=== PATIENT | female | born 1995 | race Caucasian/White ===

== ENCOUNTER 2025-03-24 09:41 | Emergency (ER) | payer BC, MEDICAID, SELFPAY ==
[2025-03-24 10:02] VITALS: BP 132/78; PULSE 81; RESP 17; TEMP 36.9; O2SAT 98; BMI 45.7
[2025-03-24 10:14] LABS: Hematocrit 42.1 % (36-47); Hemoglobin 13.50 g/dL (11.27-16.99); Mean Corpuscular HGB Conc 32.1 g/dL (30-55); Mean Corpuscular Hemoglobin 27.6 pg (27-33); Mean Corpuscular Volume 86.1 fl (85-98); Nucleated Red Blood Cells % 0 %; Platelet Count 428 10^3/cmm (157-399); Red Blood Count 4.89 10^6/uL (3.85-5.65); White Blood Count 7.27 10^3/uL (3.29-11.43)
--- NOTE | 2025-03-24 10:29 | W.ED.ANXIETY ---
HPI - Anxiety General: Chief Complaint: Anxiety Stated Complaint: mhe Time Seen by Provider: 03/24/25 10:11 History of Present Illness: 29-year-old female who presents to the emergency room regarding her mental health. She is not having any homicidal or suicidal ideation. She was recently hospitalized in [place] for auditory hallucinations. She has been having them for the last 3 years she states are actually better now she was discharged home on lithium and Zyprexa but she has not been taking either because she does not like the way they make her feel. She is awake alert oriented she is not having any behavioral issues. She does have some mild anxiety. She does have paperwork from her most recent hospital discharge including a prescription which has not been filled. She she states she was told by her mother to tell staff here that she had unspecified psychosis. Associated symptoms: Deny chest pain, chills or fever(s) Related Data Home Medications ?Medication ?Instructions ?Recorded ?Confirmed No Known Home Medications 03/24/25 03/24/25 Allergies Allergy/AdvReac Type Severity Reaction Status Date / Time sulfamethoxazole (From Allergy ALGY-Hives Verified 03/24/25 10:05 Bactrim) trimethoprim (From Bactrim) Allergy ALGY-Hives Verified 03/24/25 10:05 Review of Systems Const: Denies: fever(s) or chills Card: Denies: chest pain Resp: Denies: dyspnea GI: Denies: abdominal pain : Denies: dysuria, urinary frequency or urinary urgency Musc: Denies: neck pain or back pain Skin/Breast: Denies: rash Physical Exam Const: COMMON NORMALS: no acute distress GENERAL APPEARANCE: cooperative and comfortable ORIENTATION/CONSCIOUSNESS: Yes awake, Yes oriented to person, Yes oriented to place and Yes oriented to time HENMT: COMMON NORMALS: normocephalic, atraumatic and hearing grossly normal bilaterally HEAD & SCALP: normocephalic and atraumatic Resp: COMMON NORMALS: normal respiratory effort, No retractions, No use of accessory muscles and clear to auscultation bilaterally AUSCULTATION: clear to auscultation bilaterally Cardio: COMMON NORMALS: regular rate, regular rhythm and No murmurs present (Cardio) RATE: regular rate RHYTHM: regular rhythm GI: COMMON NORMALS: Soft to palpation and No hepatosplenomegaly present AUSCULTATION: Yes normoactive bowel sounds PALPATION: Yes Soft to palpation, No Tenderness to palpation present (GI), No Guarding due to palpation present (GI) and Yes No hepatosplenomegaly present Extremity: COMMON NORMALS: normal to inspection, capillary refill normal, no clubbing, cyanosis or edema, no calf tenderness and no pedal edema Neuro: SENSORIUM/ORIENTATION: Yes oriented to person, Yes oriented to place and Yes oriented to time Skin: COMMON NORMALS: no rashes or lesions noted GENERAL SKIN EXAM: no rashes or lesions noted Course Vital Signs: Vital signs: Vital Signs Temperature 98.4 F 03/24/25 10:02 Pulse Rate 81 03/24/25 10:02 Respiratory Rate 17 03/24/25 10:02 Blood Pressure 132/78 03/24/25 10:02 Pulse Oximetry 98 03/24/25 10:02 Oxygen Delivery Me thod Room Air 03/24/25 10:02 MDM - Anxiety Medical Decision Making Patient is having lessening auditory hallucinations no suicidal or homicidal ideation has not been on medication she was prescribed at discharge. Discussed Dr. Vásquez he does not feel hospital admission is warranted at this time he does recommend Zyprexa 10 mg daily and to follow-up at [facility] or through the crisis center for further adjustment on medications can return if has any change in symptoms. Patient is agreeable to this plan. Medical Records I reviewed the patient's medical records. Lab Data I reviewed the patient's lab results. 03/24/25 09:59 03/24/25 09:59 Laboratory Results WBC 7.27 10^3/uL (3.29-11.43) 03/24/25 09:59 RBC 4.89 10^6/uL (3.85-5.65) 03/24/25 09:59 Hgb 13.50 g/dL (11.27-16.99) 03/24/25 09:59 Hct 42.1 % (36-47) 03/24/25 09:59 MCV 86.1 fl (85-98) 03/24/25 09:59 MCH 27.6 pg (27-33) 03/24/25 09:59 MCHC 32.1 g/dL (30-55) 03/24/25 09:59 RDW 13.2 % (12.1-15.1) 03/24/25 09:59 Plt Count 428 10^3/cmm (157-399) H 03/24/25 09:59 MPV 9.8 fL (7.4-10.4) 03/24/25 09:59 Neut % (Auto) 60.5 % 03/24/25 09:59 Lymph % (Auto) 29.3 % 03/24/25 09:59 [place] % (Auto) 7.3 % 03/24/25 09:59 Eos % (Auto) 1.7 % 03/24/25 09:59 Baso % (Auto) 1.1 % 03/24/25 09:59 Neut # (Auto) 4.40 10^3/uL (1.8-7.7) 03/24/25 09:59 Lymph # (Auto) 2.1 10^3/uL (0.8-4.8) 03/24/25 09:59 [place] # (Auto) 0.5 10^3/uL (0.2-0.9) 03/24/25 09:59 Eos # (Auto) 0.1 10^3/uL (0.0-0.8) 03/24/25 09:59 Baso # (Auto) 0.1 10^3/uL (0.0-0.1) 03/24/25 09:59 Nucleated RBC % (auto) 0 % 03/24/25 09:59 Nucleated RBCs # 0.0 /100WBC 03/24/25 09:59 Sodium 139 mmol/L (136-145) 03/24/25 09:59 Potassium 3.8 mmol/L (3.5-5.1) 03/24/25 09:59 Chloride 102 mmol/L (98-107) 03/24/25 09:59 Carbon Dioxide 27 mmol/L (22-29) 03/24/25 09:59 Anion Gap 13.8 (5-19) 03/24/25 09:59 BUN 11 mg/dL (6-20) 03/24/25 09:59 Creatinine 0.7 mg/dL (0.5-0.9) 03/24/25 09:59 GFR Calculation 98.9 mL/min (90-130) 03/24/25 09:59 Glucose 132 mg/dL (65-115) H 03/24/25 09:59 Calculated Osmolality 289 mOsm/kg (285-295) 03/24/25 09:59 Calcium 9.4 mg/dL (8.5-10.5) 03/24/25 09:59 Total Bilirubin 0.5 mg/dL (0.15-1.2) 03/24/25 09:59 AST 18 U/L (0-32) 03/24/25 09:59 ALT 20 U/L (0-33) 03/24/25 09:59 Alkaline Phosphatase 101 U/L (35-105) 03/24/25 09:59 Total Protein 8.0 g/dL (6.6-8.7) 03/24/25 09:59 Albumin 4.3 g/dL (3.5-5.2) 03/24/25 09:59 Globulin 3.7 g/dL (1.3-4.6) 03/24/25 09:59 Salicylates 0.7 mg/dL (3-10) L 03/24/25 09:59 Acetaminophen < 5.0 ug/mL (10-30) L 03/24/25 09:59 No radiology studies performed this visit Discharge Plan Discharge Patient Disposition: Home Clinical Impression: Acute anxiety, Verbal auditory hallucination Condition: Stable Prescriptions: No Action No Known Home Medications Discharge Orders: Discharge ED (Routine); Ordered 03/24/25 Ordered By: Dominick Dyer Discharge Diet: Usual diet Discharge Activity: Resume usual activity Patient Instructions: Opioid Safety, Pain Management, Patient Portal & Pato Instructions Activity Restrictions/Additional Instructions: Thank you for choosing [facility] for your healthcare needs today. It is very important that you follow up as instructed or that you return to the Emergency Department should you have concerns or if your condition changes or worsens in any way. Emergency department visits are focused on emergent conditions, in some cases you may require further evaluation on an outpatient basis. You were seen in the emergency room with concerns about your medications and your hallucinations. We talked with psychiatrist on-call he recommends starting Zyprexa 10 mg daily. And following up at [facility] if he cannot get into [facility] within the next 1 to 2 weeks follow-up at crisis stabilization unit they can (Please note that included in your discharge packet is information concerning opioid safety and pain management. This information is given to all patients were discharged from the ER regardless of their discharge diagnosis or the medicines they usually take or are prescribed.) Print Language: [place] Coding Level of Care Code ED Seasonal Recruiter for Jose Siddiqui
[2025-03-24 10:37] LABS: Alanine Aminotransferase 20 U/L (0-33); Albumin Level 4.3 g/dL (3.5-5.2); Alkaline Phosphatase 101 U/L (35-105); Anion Gap 13.8 (5-19); Aspartate Amino Transferase 18 U/L (0-32); Blood Urea Nitrogen 11 mg/dL (6-20); Calcium 9.4 mg/dL (8.5-10.5); Carbon Dioxide 27 mmol/L (22-29); Chloride 102 mmol/L (98-107); Globulin 3.7 g/dL (1.3-4.6); Glucose 132 mg/dL (65-115); Osmolality Calculated 289 mOsm/kg (285-295); Potassium 3.8 mmol/L (3.5-5.1); Salicylate 0.7 mg/dL (3-10); Sodium 139 mmol/L (136-145); Total Protein 8.0 g/dL (6.6-8.7)
[2025-03-24 10:42] LABS: Acetaminophen < 5.0 ug/mL (10-30)
== END 2025-03-24 11:17 | disposition home or self-care (01) ==
PROVIDERS: Emergency Provider Family Medicine
DX: F41.8 Other specified anxiety disorders (principal); R44.0 Auditory hallucinations
CPT/HCPCS: 36415; 80053; 80307; 85025; 99283

== ENCOUNTER 2025-03-29 14:33 | Inpatient (IN) | payer BC, MEDICAID, SELFPAY ==
[2025-03-29 14:36] VITALS: BP 133/87; PULSE 103; RESP 17; TEMP 36.7; O2SAT 98; BMI 45.7
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
[2025-03-29 14:58] LABS: Glucose Urine UA Negative (Normal); Nitrate Urine Negative (Negative); Specific Gravity, Urine 1.014 (1.005-1.030)
[2025-03-29 15:03] LABS: Add Urine Microscopic? YES
[2025-03-29 15:07] LABS: PCP Screen Urine Negative (Negative)
[2025-03-29 15:15] LABS: Hematocrit 42.7 % (36-47); Hemoglobin 13.50 g/dL (11.27-16.99); Mean Corpuscular HGB Conc 31.6 g/dL (30-55); Mean Corpuscular Hemoglobin 27.1 pg (27-33); Mean Corpuscular Volume 85.6 fl (85-98); Nucleated Red Blood Cells % 0 %; Platelet Count 498 10^3/cmm (157-399); Red Blood Count 4.99 10^6/uL (3.85-5.65); White Blood Count 13.74 10^3/uL (3.29-11.43)
--- NOTE | 2025-03-29 15:19 | PC.NURSE ---
96 hr rights reviewed with pt @1500 with assistance of [facility] armor officer Fermin Naqvi All education reviewed with pt at this time. Pt verbalized understanding to hold parameters. Pt copy left @bedside with pt. [place] provided.
[2025-03-29 15:28] LABS: HCG, Serum Qual Negative (Negative)
[2025-03-29 15:39] LABS: Alanine Aminotransferase 16 U/L (0-33); Albumin Level 4.7 g/dL (3.5-5.2); Alkaline Phosphatase 93 U/L (35-105); Anion Gap 15.9 (5-19); Aspartate Amino Transferase 14 U/L (0-32); Blood Urea Nitrogen 8 mg/dL (6-20); Calcium 9.6 mg/dL (8.5-10.5); Carbon Dioxide 23 mmol/L (22-29); Chloride 100 mmol/L (98-107); Globulin 3.5 g/dL (1.3-4.6); Glucose 102 mg/dL (65-115); Osmolality Calculated 279 mOsm/kg (285-295); Potassium 3.9 mmol/L (3.5-5.1); Sodium 135 mmol/L (136-145); Total Protein 8.2 g/dL (6.6-8.7)
[2025-03-29 15:41] LABS: Acetaminophen < 5.0 ug/mL (10-30); Alcohol Level < 10 mg/dL (0-10); Salicylate < 0.3 mg/dL (3-10)
[2025-03-29 16:40] VITALS: BP 112/75; PULSE 84; RESP 20; TEMP 37.3; O2SAT 98
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
--- NOTE | 2025-03-29 17:24 | PC.NURSE ---
Lynnette Faria's phone number is [phone]
[2025-03-29 20:41] VITALS: BP 113/78; PULSE 81; RESP 17; TEMP 36.8; O2SAT 98
--- NOTE | 2025-03-30 06:10 | PC.NURSE ---
pt refused height and weight nurse notified
--- NOTE | 2025-03-30 06:32 | PC.NURSE ---
pt refused vs, nurse notified, resp 16
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
--- NOTE | 2025-03-30 22:37 | PC.NURSE ---
pt refused vs, nurse notified, resp 16
[2025-03-31 07:40] VITALS: RESP 18
--- NOTE | 2025-03-31 07:40 | PC.NURSE ---
when going to get pts vitals in dayroom pt said no thank you nurse aware
[2025-03-31 13:57] VITALS: BP 115/66
--- NOTE | 2025-03-31 16:02 | PC.NURSE ---
Mother Giana called and said she was going to the beauty director tomorrow to file for guardianship.
--- NOTE | 2025-03-31 16:34 | W.PM.NPUPNS ---
Subjective NPU Subjective: 29-year-old female admitted with psychosis with the patient endorsing that her family members were impostors. Patient had reported that she did not want to take any antipsychotic medication. She had been quiet but redirectable on the milieu. She had acknowledged having a problem with being aggressive in the past but did not elaborate. She had reported that the discontinuation of her ketamine infusions had led to her having more problems with her mood. She had reported that people in [place] had changed as she had stated that many of the things that she enjoyed about [place] had changed as she had stated that they had been bought and replaced by specific people of power that were not interested in making things better. She had denied any hallucinations. She had acknowledged having discontinued the olanzapine stating that it was not helpful. She had reported having problems with chronic pain. Mental Status Exam MSE Comments: Obese female who appeared her stated age with limited hygiene and normal gait. There was evidence of some odd facial tics appreciated. Her speech was normal in regards to volume with some increased latency in speech. Her mood was described as okay Her affect was odd with Her thought process was linear, logical, and goal-directed. Her thought content showed no evidence of suicidal or homicidal ideation currently. There was clear evidence of delusions including the belief that family members were possibly replaced by impostors. She had intimated about people in every walk of life being different, reporting everything is the same. She denied any auditory or visual hallucinations. She did not appear to be responding to internal stimuli. She was alert and oriented to person, place, time, and situation. Her insight is impaired. Her judgment is poor. Her impulse control appeared limited at this time. Vitals/I&O/Wt Last Vital Signs Temp 98.2 F 03/29/25 20:41 Pulse 81 03/29/25 20:41 Resp 18 03/31/25 07:40 BP 115/66 03/31/25 13:57 Pulse Ox 98 03/29/25 20:41 O2 Del Method Room Air 03/29/25 20:41 Data NPU 03/29/25 14:56 03/29/25 14:56 A&P Assessment and plan 1. Paranoid schizophrenia: 2. Homicidal ideations: Plan: 29-year-old female who presents with significant delusions with history of multiple inpatient hospitalizations currently on an involuntary hold and refusing any medications at this time. #1.Engage patient in individual, milieu, and group therapy. #2 therapeutic observation 15-minute checks. #3 Will attempt to gather collateral information including previous hospitalizations. #4 patient may require forced medications on an extended hold as she is currently refusing medications and is on a 96-hour hold. PDMP PDMP Reviewed: Not Reviewed Involuntary Hold Information Hold Status: Legal Status: 96 Hour Hold Date/Time Hold Expires: 04/07/2025 @ 0001 Attestations NPU Medical Necessity Statement*: Inpatient hospitalization is medically necessary and deemed to be the clinically appropriate intervention at this time. Medications will be initiated and adjusted accordingly. Patient's likely length of stay is 7 to 10 days. Coding Level of Care Code Acute Code for [facility] Fwd Diagnoses Paranoid schizophrenia F20.0 Homicidal ideations R45.850
--- NOTE | 2025-03-31 19:40 | PC.NURSE ---
pt ref vs resp 18 charge notified
--- NOTE | 2025-04-01 06:14 | PC.NURSE ---
pt ref vs charge notified resp 18
--- NOTE | 2025-04-01 09:08 | PC.NURSE ---
pt behavior this nurse asked pt to do her shift assessment and pt stated yeah thats fine then the she said 'well nevermind no, thats weird, i refuse'
[2025-04-01 14:00] VITALS: BP 116/66; PULSE 76; RESP 18; TEMP 37; O2SAT 96
--- NOTE | 2025-04-01 17:03 | P.NPUPN_ITS ---
Subjective NPU 2 Subjective: 29-year-old female admitted with psychos is with the patient endorsing that her family members were impostors. She was noncompliant with any treatment. She had continued to eat food and consume fluids. She stated that she did not need to be here. She had reported that she needed to be back on ketamine again. She had apparently had a visit from her mother and reported that it went fine. She had acknowledged that she had had problems with her anger and questioned why the automobile service writer was trying to establish a clear timeline and report of what had occurred that had led her to come to [place]. She continued to refer to her family members as impostors and stated that she would likely return to her mother's care when discharged. She had reported limited social supports here. She had minimal engagement with her peers. The patient had stated that she thought the automobile service writer of this note had been under the influence of ketamine that was meant for her. Mental Status Exam 2 MSE Comments: Obese female who appeared her stated age with limited hygiene and normal gait. There was evidence of some odd facial tics appreciated. Her speech was normal in regards to volume with some increased latency in speech. Her mood was described as fine. Her affect was subdued. Her thought process was linear, logical, but superficial. Her thought content showed no evidence of suicidal or homicidal ideation currently. There was clear evidence of delusions including the belief that family members were possibly replaced by impostors. She became acutely agitated during the interview as she endorsed ideas of reference. She denied any auditory or visual hallucinations. She did not appear to be responding to internal stimuli. She was alert and oriented to person, place, time, and situation. Her insight is impaired. Her judgment is poor. Her impulse control appeared limited at this time. Vitals/I&O/Wt Last Vital Signs Temp 98.6 F 04/01/25 14:00 Pulse 76 04/01/25 14:00 Resp 18 04/01/25 14:00 BP 116/66 04/01/25 14:00 Pulse Ox 96 04/01/25 14:00 O2 Del Method Room Air 04/01/25 14:00 Data NPU 03/29/25 14:56 03/29/25 14:56 A&P Assessment and plan 1. Paranoid schizophrenia: 2. Homicidal ideations: Plan: 29-year-old female who presents with significant delusions with history of multiple inpatient hospitalizations currently on an involuntary hold and refusing any medications at this time. #1.Engage patient in individual, milieu, and group therapy. #2 therapeutic observation 15-minute checks. #3 Will attempt to gather collateral information including previous hospitalizations. #4 patient may require forced medications on an extended hold as she is currently refusing medications and is on a 96-hour hold. #5 Mother seeking emergency guardianship of patient and will support it with level 2. PDMP PDMP Reviewed: Not Reviewed Involuntary Hold Information 2 Hold Status: Legal Status: 96 Hour Hold Date/Time Hold Expires: 04/07/2025 @ 0001 Attestations NPU 2 Medical Necessity Statement*: Inpatient hospitalization is medically necessary and deemed to be the clinically appropriate intervention at this time. Medications will be initiated and adjusted accordingly. Patient's likely length of stay is 7 to 10 days. Coding Level of Care Code Acute Code for g Fwd Diagnoses Paranoid schizophrenia F20.0 Homicidal ideations R45.850
--- NOTE | 2025-04-01 20:07 | PC.NURSE ---
pvs not collected pt ref resp 17 charge notified
--- NOTE | 2025-04-02 06:35 | PC.NURSE ---
vitals pt ref vs resp 18 charge notified
[2025-04-02 14:00] VITALS: BP 132/83; PULSE 86; RESP 15; TEMP 37.4; O2SAT 97
--- NOTE | 2025-04-02 16:14 | P.NPUPN_ITS ---
Subjective NPU 2 Subjective: 29-year-old female admitted with psychos is with the patient endorsing that her family members were impostors. The patient had reportedly stated that he wanted to kill her grandfather and turn him into leather. She continued to remain noncompliant here other than eating and drinking. She had reported that she was doing fine. She did not require any as needed medications. She continued to remain guarded and evasive and stated that she was simply here to spend 96 hours here. She reported no thoughts of hurting herself or others. Mental Status Exam 2 MSE Comments: Obese female who appeared her stated age with limited hygiene and normal gait. There was evidence of some odd facial tics appreciated. Her speech was normal in regards to volume with some increased latency in speech. Her mood was described as good. Her affect was subdued. Her thought process was linear, logical, but superficial. Her thought content showed no evidence of suicidal or homicidal ideation currently. There was clear evidence of delusions including the belief that family members were possibly replaced by impostors. There was continued ideas of reference. She denied any auditory or visual hallucinations. She did not appear to be responding to internal stimuli. She was alert and oriented to person, place, time, and situation. Her insight is impaired. Her judgment is poor. Her impulse control appeared limited at this time. Vitals/I&O/Wt Last Vital Signs Temp 99.4 F 04/02/25 14:00 Pulse 86 04/02/25 14:00 Resp 15 04/02/25 14:00 BP 132/83 04/02/25 14:00 Pulse Ox 97 04/02/25 14:00 O2 Del Method Room Air 04/01/25 14:00 Data NPU 03/29/25 14:56 03/29/25 14:56 A&P Assessment and plan 1. Paranoid schizophrenia: 2. Homicidal ideations: Plan: 29-year-old female who presents with significant delusions with history of multiple inpatient hospitalizations currently on an involuntary hold and refusing any medications at this time. #1.Engage patient in individual, milieu, and group therapy. #2 therapeutic observation 15-minute checks. #3 Will attempt to gather collateral information including previous hospitalizations. #4 patient may require forced medications on an extended hold as she is currently refusing medications and is on a 96-hour hold. 21 day hold filed. #5 Mother seeking emergency guardianship of patient and will support it with level 2. PDMP PDMP Reviewed: Not Reviewed Involuntary Hold Information 2 Hold Status: Legal Status: 96 Hour Hold Date/Time Hold Expires: 04/07/2025 @ 0001 Attestations NPU 2 Medical Necessity Statement*: Inpatient hospitalization is medically necessary and deemed to be the clinically appropriate intervention at this time. Medications will be initiated and adjusted accordingly. Patient's likely length of stay is 7 to 10 days. Coding Level of Care Code Acute Code for [facility] Fwd Diagnoses Paranoid schizophrenia F20.0 Homicidal ideations R45.850
--- NOTE | 2025-04-02 20:26 | PC.NURSE ---
vitals pt ref vs resp 17 charge notified
--- NOTE | 2025-04-03 06:26 | PC.NURSE ---
pt ref vs resp 16 charge notified
--- NOTE | 2025-04-03 12:19 | P.NPUPN_ITS ---
Subjective NPU 2 Subjective: 29-year-old female admitted with psychos is with the patient endorsing that her family members were impostors. The patient had no acts of aggression. She remained isolated and guarded in her room. She had reported that she was doing fine here. She did not discuss any details further regarding her hospitalization. She continued to suggest that her loved ones were not who they say they were. Mental Status Exam 2 MSE Comments: Obese female who appeared her stated age with limited hygiene and normal gait. There was evidence of some odd facial tics appreciated. Her speech was normal in regards to volume with some increased latency in speech. Her mood was described as good. Her affect remained subdued. Her thought process was linear, logical, but superficial. Her thought content showed no evidence of suicidal or homicidal ideation currently. There was clear evidence of delusions including the belief that family members were possibly replaced by impostors. There was continued ideas of reference. She denied any auditory or visual hallucinations. She did not appear to be responding to internal stimuli. She was alert and oriented to person, place, time, and situation. Her insight is impaired. Her judgment is poor. Her impulse control appeared limited at this time. Vitals/I&O/Wt Last Vital Signs Temp 99.4 F 04/02/25 14:00 Pulse 86 04/02/25 14:00 Resp 15 04/02/25 14:00 BP 132/83 04/02/25 14:00 Pulse Ox 97 04/02/25 14:00 O2 Del Method Room Air 04/01/25 14:00 Data NPU 03/29/25 14:56 03/29/25 14:56 A&P Assessment and plan 1. Paranoid schizophrenia: 2. Homicidal ideations: Plan: 29-year-old female who presents with significant delusions with history of multiple inpatient hospitalizations currently on an involuntary hold and refusing any medications at this time. #1.Engage patient in individual, milieu, and group therapy. #2 therapeutic observation 15-minute checks. #3 Will attempt to gather collateral information including previous hospitalizations. #4 patient may require forced medications on an extended hold as she is currently refusing medications and is on a 96-hour hold. 21 day hold filed. #5 Mother seeking emergency guardianship of patient and will support it with level 2. PDMP PDMP Reviewed: Not Reviewed Involuntary Hold Information 2 Hold Status: Legal Status: 96 Hour Hold Date/Time Hold Expires: 04/07/2025 @ 0001 Attestations NPU 2 Medical Necessity Statement*: Inpatient hospitalization is medically necessary and deemed to be the clinically appropriate intervention at this time. Medications will be initiated and adjusted accordingly. Patient's likely length of stay is 7 to 10 days. Coding Level of Care Code Acute Code for [facility] Fwd Diagnoses Paranoid schizophrenia F20.0 Homicidal ideations R45.850
[2025-04-03 14:00] VITALS: BP 130/60; PULSE 88; RESP 16; TEMP 37; O2SAT 96
[2025-04-03 21:43] VITALS: BP 139/89; PULSE 87; RESP 17; TEMP 36.9; O2SAT 97
[2025-04-04 06:00] VITALS: BP 158/92; PULSE 98; RESP 18; TEMP 37; O2SAT 97
[2025-04-04 14:00] VITALS: RESP 16
--- NOTE | 2025-04-04 15:36 | PC.NURSE ---
pt refused vitals
--- NOTE | 2025-04-04 16:16 | W.PM.NPUPNS ---
Subjective NPU Subjective: Patient presented today reporting she is doing all right. We had a discussion trying to determine what her goals of the hospitalization are and she reported that she did not decide to bear that she was forced to be here and that she was not really sure that she needed or wanted any medications. We discussed continuing to consider the possibilities and that doing so would make it likely easier hearing and more expeditious as far as her being out of the hospital. She identified that she would consider that but at this point continued to be not interested in medication. Mental Status Exam MSE Comments: Obese female who appeared her stated age with limited hygiene and normal gait. There was evidence of some odd facial tics appreciated. Her speech was normal in regards to volume with some increased latency in speech. Her mood was described as good. Her affect remained subdued. Her thought process was linear, logical, but superficial. Her thought content showed no evidence of suicidal or homicidal ideation currently. There was clear evidence of delusions including the belief that family members were possibly replaced by impostors. There was continued ideas of reference. She denied any auditory or visual hallucinations. She did not appear to be responding to internal stimuli. She was alert and oriented to person, place, time, and situation. Her insight is impaired. Her judgment is poor. Her impulse control appeared limited at this time. Vitals/I&O/Wt Last Vital Signs Temp 98.6 F 04/04/25 06:00 Pulse 98 04/04/25 06:00 Resp 16 04/04/25 14:00 BP 158/92 04/04/25 06:00 Pulse Ox 97 04/04/25 06:00 O2 Del Method Room Air 04/04/25 06:00 Data NPU 03/29/25 14:56 03/29/25 14:56 A&P Assessment and plan 1. Paranoid schizophrenia: 2. Homicidal ideations: Plan: 29-year-old female who presents with significant delusions with history of multiple inpatient hospitalizations currently on an involuntary hold and refusing any medications at this time. #1.Engage patient in individual, milieu, and group therapy. #2 therapeutic observation 15-minute checks. #3 Will attempt to gather collateral information including previous hospitalizations. #4 patient may require forced medications on an extended hold as she is currently refusing medications and is on a 96-hour hold. 21 day hold filed. #5 Mother seeking emergency guardianship of patient and will support it with level 2. PDMP PDMP Reviewed: Not Reviewed Involuntary Hold Information Hold Status: Legal Status: 96 Hour Hold Date/Time Hold Expires: 04/07/2025 @ 0001 Attestations NPU Medical Necessity Statement*: Inpatient hospitalization is medically necessary and the clinically appropriate intervention at this time. We will monitor/initiate medications and make changes as indicated. Patient's likely length of stay is 6-9 days. Coding Level of Care Code Acute Code for [facility] Fwd Diagnoses Paranoid schizophrenia F20.0 Homicidal ideations R45.850
--- NOTE | 2025-04-04 19:55 | PC.NURSE ---
pt refused vs, nurse notified, resp 18
--- NOTE | 2025-04-05 06:44 | PC.NURSE ---
pt refused vs, nurse notified, resp 17
[2025-04-05 14:00] VITALS: RESP 17
--- NOTE | 2025-04-05 16:01 | PC.NURSE ---
refused 1600 vital signs. resp even et unlabored currently
--- NOTE | 2025-04-05 18:27 | P.NPUPN_ITS ---
Subjective NPU 2 Subjective: Patient presented today reporting that she is doing all right. She was having significant masturbation per staff reports. She discussed an openness to some kind of treatment but was reporting that her being here has something to do with some strange situation at her residential location. But then as she described her history most of her history contained odd living arrangements which she was unable to truly explain. She continued to endorse a desire not to be put on medications but we did discuss the fact that her considering medication and effective medication being initiated will likely have a significant impact on her discharge plan and the timeliness thereof. Mental Status Exam 2 MSE Comments: Obese female who appeared her stated age with limited hygiene and normal gait. There was evidence of some odd facial tics appreciated. Her speech was normal in regards to volume with some increased latency in speech. Her mood was described as good. Her affect remained subdued. Her thought process was linear, logical, but superficial. Her thought content showed no evidence of suicidal or homicidal ideation currently. There was clear evidence of delusions including the belief that family members were possibly replaced by impostors. There was continued ideas of reference. She denied any auditory or visual hallucinations. She did not appear to be responding to internal stimuli. She was alert and oriented to person, place, time, and situation. Her insight is impaired. Her judgment is poor. Her impulse control appeared limited at this time. Vitals/I&O/Wt Last Vital Signs Temp 98.6 F 04/04/25 06:00 Pulse 98 04/04/25 06:00 Resp 17 04/05/25 14:00 BP 158/92 04/04/25 06:00 Pulse Ox 97 04/04/25 06:00 O2 Del Method Room Air 04/05/25 14:00 Data NPU 03/29/25 14:56 03/29/25 14:56 A&P Assessment and plan 1. Paranoid schizophrenia: 2. Homicidal ideations: Plan: 29-year-old female who presents with significant delusions with history of multiple inpatient hospitalizations currently on an involuntary hold and refusing any medications at this time. #1.Engage patient in individual, milieu, and group therapy. #2 therapeutic observation 15-minute checks. #3 Will attempt to gather collateral information including previous hospitalizations. #4 patient may require forced medications on an extended hold as she is currently refusing medications and is on a 96-hour hold. 21 day hold filed. #5 Mother seeking emergency guardianship of patient and will support it with level 2. PDMP PDMP Reviewed: Not Reviewed Involuntary Hold Information 2 Hold Status: Legal Status: 96 Hour Hold Date/Time Hold Expires: 04/07/2025 @ 0001 Attestations NPU 2 Medical Necessity Statement*: Inpatient hospitalization is medically necessary and the clinically appropriate intervention at this time. We will monitor/initiate medications and make changes as indicated. Patient's likely length of stay is 6-9 days. Coding Level of Care Code Acute Code for g Fwd Diagnoses Paranoid schizophrenia F20.0 Homicidal ideations R45.850
--- NOTE | 2025-04-05 21:13 | PC.NURSE ---
pt refused vs, nurse notified, resp 17
--- NOTE | 2025-04-06 06:40 | PC.NURSE ---
pt refused weights and vs, nurse notified, resp 17
--- NOTE | 2025-04-06 09:20 | NUR.SHIFT ---
Pt states that she slept just fine last night. Denies any anxiety or depression. No reports of SI/HI or hallucinations.
--- NOTE | 2025-04-06 09:46 | P.NPUPN_ITS ---
Subjective NPU 2 Subjective: Patient presented today reporting that she doing fine. She was asking about discharge and we discussed her having a hearing on Monday that would determine the direction of her care either discharge or possible forced medication protocol. She continues to deny a diet medication reporting that it is not helpful for her. Mental Status Exam 2 MSE Comments: Obese female who appeared her stated age with limited hygiene and normal gait. There was evidence of some odd facial tics appreciated. Her speech was normal in regards to volume with some increased latency in speech. Her mood was described as good. Her affect remained subdued. Her thought process was linear, logical, but superficial. Her thought content showed no evidence of suicidal or homicidal ideation currently. There was clear evidence of delusions including the belief that family members were possibly replaced by impostors. There was continued ideas of reference. She denied any auditory or visual hallucinations. She did not appear to be responding to internal stimuli. She was alert and oriented to person, place, time, and situation. Her insight is impaired. Her judgment is poor. Her impulse control appeared limited at this time. Vitals/I&O/Wt Last Vital Signs Temp 98.6 F 04/04/25 06:00 Pulse 98 04/04/25 06:00 Resp 17 04/05/25 14:00 BP 158/92 04/04/25 06:00 Pulse Ox 97 04/04/25 06:00 O2 Del Method Room Air 04/05/25 14:00 Data NPU 03/29/25 14:56 03/29/25 14:56 A&P Assessment and plan 1. Paranoid schizophrenia: 2. Homicidal ideations: Plan: 29-year-old female who presents with significant delusions with history of multiple inpatient hospitalizations currently on an involuntary hold and refusing any medications at this time. #1.Engage patient in individual, milieu, and group therapy. #2 therapeutic observation 15-minute checks. #3 Will attempt to gather collateral information including previous hospitalizations. #4 patient may require forced medications on an extended hold as she is currently refusing medications and is on a 96-hour hold. 21 day hold filed. Hearing will be 04/08/2025 at 1500. #5 Mother seeking emergency guardianship of patient and will support it with level 2. PDMP PDMP Reviewed: Not Reviewed Involuntary Hold Information 2 Hold Status: Legal Status: 96 Hour Hold Date/Time Hold Expires: 04/07/2025 @ 0001 Attestations NPU 2 Medical Necessity Statement*: Inpatient hospitalization is medically necessary and the clinically appropriate intervention at this time. We will monitor/initiate medications and make changes as indicated. Patient's likely length of stay is 5-day days. Coding Level of Care Code Acute Code for g Fwd Diagnoses Paranoid schizophrenia F20.0 Homicidal ideations R45.850
[2025-04-06 14:00] VITALS: RESP 18
--- NOTE | 2025-04-06 15:27 | PC.NURSE ---
attempted to perform vitals on pt at that time pt stated I am fine thank you I do not want vitals taken.
[2025-04-06 20:28] VITALS: BP 118/84; PULSE 74; RESP 18; TEMP 36.7; O2SAT 98
--- NOTE | 2025-04-07 06:35 | PC.NURSE ---
vitals pt refused vs ststing I do not need them . resp 18 nurse notified
[2025-04-07 13:40] VITALS: BP 135/76; PULSE 90; RESP 16; TEMP 37.4; O2SAT 98
--- NOTE | 2025-04-07 14:17 | W.PM.NPUPNS ---
Subjective NPU Subjective: Patient presented today reporting that she is feeling better. She continues to deny understanding of the reality of her stay and why people were concerned about the legal statements she was making. We discussed her hearing tomorrow and that we would have a discussion prior to the hearing so that she understood with this quality analyst/technical writer would be reporting in court but that we believe she needs to continue her stay so that we can prepare for a safe discharge as well as needing to explore how medication could be helpful. Mental Status Exam MSE Comments: Obese female who appeared her stated age with limited hygiene and normal gait. There was evidence of some odd facial tics appreciated. Her speech was normal in regards to volume with some increased latency in speech. Her mood was described as good. Her affect remained subdued. Her thought process was linear, logical, but superficial. Her thought content showed no evidence of suicidal or homicidal ideation currently. There was clear evidence of delusions including the belief that family members were possibly replaced by impostors. There was continued ideas of reference. She denied any auditory or visual hallucinations. She did not appear to be responding to internal stimuli. She was alert and oriented to person, place, time, and situation. Her insight is impaired. Her judgment is poor. Her impulse control appeared limited at this time. Vitals/I&O/Wt Last Vital Signs Temp 99.4 F 04/07/25 13:40 Pulse 90 04/07/25 13:40 Resp 16 04/07/25 13:40 BP 135/76 04/07/25 13:40 Pulse Ox 98 04/07/25 13:40 O2 Del Method Room Air 04/07/25 13:40 Data NPU 03/29/25 14:56 03/29/25 14:56 A&P Assessment and plan 1. Paranoid schizophrenia: 2. Homicidal ideations: Plan: 29-year-old female who presents with significant delusions with history of multiple inpatient hospitalizations currently on an involuntary hold and refusing any medications at this time. #1.Engage patient in individual, milieu, and group therapy. #2 therapeutic observation 15-minute checks. #3 Will attempt to gather collateral information including previous hospitalizations. #4 patient may require forced medications on an extended hold as she is currently refusing medications and is on a 96-hour hold. 21 day hold filed. Hearing will be 04/08/2025 at 1500. #5 Mother seeking emergency guardianship of patient and will support it with level 2. PDMP PDMP Reviewed: Not Reviewed Involuntary Hold Information Hold Status: Legal Status: 96 Hour Hold Date/Time Hold Expires: 04/07/2025 @ 0001 Attestations NPU Medical Necessity Statement*: Inpatient hospitalization is medically necessary and the clinically appropriate intervention at this time. We will monitor/initiate medications and make changes as indicated. Patient's likely length of stay is 4-7 days. Coding Level of Care Code Acute Code for g Fwd Diagnoses Paranoid schizophrenia F20.0 Homicidal ideations R45.850
[2025-04-07 20:52] VITALS: BP 151/93; PULSE 84; RESP 17; TEMP 37.4; O2SAT 97
--- NOTE | 2025-04-08 06:21 | PC.NURSE ---
vitals pt vs not collected resp 16 charge notified
--- NOTE | 2025-04-08 17:42 | P.NPUPN_ITS ---
Subjective NPU 2 Subjective: Patient presented today reporting that she is doing okay. We spoke before the hearing and she identified that supposedly some of the reportedly homicidal statements she was making were part of some dark humor. However she seemed to understand the situation she found herself in and after the hearing which she did not attend she did discuss considering resuming Abilify which she had been on before in the past but reported she had not stayed on it long enough to find out if it would be good or effective for her. Mental Status Exam 2 MSE Comments: Obese female who appeared her stated age with limited hygiene and normal gait. There was evidence of some odd facial tics appreciated. Her speech was normal in regards to volume with some increased latency in speech. Her mood was described as good. Her affect remained subdued. Her thought process was linear, logical, but superficial. Her thought content showed no evidence of suicidal or homicidal ideation currently. There was clear evidence of delusions including the belief that family members were possibly replaced by impostors. There was continued ideas of reference. She denied any auditory or visual hallucinations. She did not appear to be responding to internal stimuli. She was alert and oriented to person, place, time, and situation. Her insight is impaired. Her judgment is poor. Her impulse control appeared limited at this time. Vitals/I&O/Wt Last Vital Signs Temp 99.4 F 04/07/25 20:52 Pulse 84 04/07/25 20:52 Resp 17 04/07/25 20:52 BP 151/93 04/07/25 20:52 Pulse Ox 97 04/07/25 20:52 O2 Del Method Room Air 04/07/25 20:52 Data NPU 03/29/25 14:56 03/29/25 14:56 A&P Assessment and plan 1. Paranoid schizophrenia: 2. Homicidal ideations: Plan: 29-year-old female who presents with significant delusions with history of multiple inpatient hospitalizations currently on an involuntary hold and refusing any medications at this time. #1.Engage patient in individual, milieu, and group therapy. #2 therapeutic observation 15-minute checks. #3 Will attempt to gather collateral information including previous hospitalizations. #4 patient may require forced medications on an extended hold as she is currently refusing medications and is on a 96-hour hold. 21 day hold filed. Hearing was today, 04/08/2025 at 1500. She was placed on a 21-day hold. #5 Mother seeking emergency guardianship of patient and will support it with level 2. #6 start Abilify 10 mg p.o. every morning. PDMP PDMP Reviewed: Not Reviewed Involuntary Hold Information 2 Hold Status: Legal Status: 96 Hour Hold Date/Time Hold Expires: 04/07/2025 @ 0001 Attestations NPU 2 Medical Necessity Statement*: Inpatient hospitalization is medically necessary and the clinically appropriate intervention at this time. We will monitor/initiate medications and make changes as indicated. Patient's likely length of stay is 4-7 days. Coding Level of Care Code Acute Code for [facility] Fwd Diagnoses Paranoid schizophrenia F20.0 Homicidal ideations R45.850
--- NOTE | 2025-04-08 20:28 | PC.NURSE ---
vs not collected pt ref resp 17 charge notified
--- NOTE | 2025-04-09 06:47 | PC.NURSE ---
pt ref vs charge notified resp 16
--- NOTE | 2025-04-09 13:39 | P.NPUPN_ITS ---
Subjective NPU 2 Subjective: Patient presented today reporting that she is doing all right. She requested that she get double portions as she feels that the amount of food in her regular meal is not sufficient. Otherwise she was tolerating the initiation of the Abilify which she reports she had had some success with in the past. We discussed the idea of likely increasing it at some point and consideration of the long-acting injectable eventually for adherence. She denied any side effects to the medication and endorsed doing okay overall. Mental Status Exam 2 MSE Comments: Obese female who appeared her stated age with limited hygiene and normal gait. There was evidence of some odd facial tics appreciated. Her speech was normal in regards to volume with some increased latency in speech. Her mood was described as good. Her affect remained subdued. Her thought process was linear, logical, but superficial. Her thought content showed no evidence of suicidal or homicidal ideation currently. There was clear evidence of delusions including the belief that family members were possibly replaced by impostors. There was continued ideas of reference. She denied any auditory or visual hallucinations. She did not appear to be responding to internal stimuli. She was alert and oriented to person, place, time, and situation. Her insight is impaired. Her judgment is poor. Her impulse control appeared limited at this time. Vitals/I&O/Wt Last Vital Signs Temp 99.4 F 04/07/25 20:52 Pulse 84 04/07/25 20:52 Resp 17 04/07/25 20:52 BP 151/93 04/07/25 20:52 Pulse Ox 97 04/07/25 20:52 O2 Del Method Room Air 04/07/25 20:52 Data NPU 03/29/25 14:56 03/29/25 14:56 A&P Assessment and plan 1. Paranoid schizophrenia: 2. Homicidal ideations: 3. Acute psychosis: Plan: 29-year-old female who presents with significant delusions with history of multiple inpatient hospitalizations currently on an involuntary hold and refusing any medications at this time. #1.Engage patient in individual, milieu, and group therapy. #2 therapeutic observation 15-minute checks. #3 Will attempt to gather collateral information including previous hospitalizations. #4 patient may require forced medications on an extended hold as she is currently refusing medications and is on a 96-hour hold. 21 day hold filed. Hearing was 04/08/2025 at 1500. She was placed on a 21-day hold. #5 Mother seeking emergency guardianship of patient and will support it with level 2. #6 started Abilify 10 mg p.o. every morning. PDMP PDMP Reviewed: Not Reviewed Involuntary Hold Information 2 Hold Status: Legal Status: 21 Day Hold Date/Time Hold Expires: 04/29/2025 Attestations NPU 2 Medical Necessity Statement*: Inpatient hospitalization is medically necessary and the clinically appropriate intervention at this time. We will monitor/initiate medications and make changes as indicated. Patient's likely length of stay is 4-7 days. Coding Level of Care Code Acute Code for [facility] Fwd Diagnoses Paranoid schizophrenia F20.0 Homicidal ideations R45.850 Acute psychosis F23
--- NOTE | 2025-04-09 15:41 | PC.NURSE ---
Attempted vitals @ 1400 and 1540. Pt refused
--- NOTE | 2025-04-09 20:08 | PC.NURSE ---
pt ref vs resp 18 charge notified
--- NOTE | 2025-04-10 06:32 | PC.NURSE ---
vs not collected resp 16 charge notified
--- NOTE | 2025-04-10 12:02 | P.NPUPN_ITS ---
Subjective NPU 2 Subjective: Patient presented today reporting that she was doing fine. She continues to be somewhat isolative but reports that that is somewhat how she is. She appears more receptive to the idea of some kind of placement. We discussed the importance of her obtaining her highest level of functioning so that she can demonstrate that she needs less oversight and more independence. She continued to take her medication without incident and denied any side effects to the medication. Mental Status Exam 2 MSE Comments: Obese female who appeared her stated age with limited hygiene and normal gait.There was evidence of some odd facial tics appreciated. Her speech was normal in regards to volume with some increased latency in speech. Her mood was described as good. Her affect remained subdued. Her thought process was linear, logical, but superficial. Her thought content showed no evidence of suicidal or homicidal ideation currently. There was clear evidence of delusions including the belief that family members were possibly replaced by impostors. There was continued ideas of reference. She denied any auditory or visual hallucinations. She did not appear to be responding to internal stimuli. She was alert and oriented to person, place, time, and situation. Her insight is impaired. Her judgment is poor. Her impulse control appeared limited at this time. Vitals/I&O/Wt Last Vital Signs Temp 99.4 F 04/07/25 20:52 Pulse 84 04/07/25 20:52 Resp 17 04/07/25 20:52 BP 151/93 04/07/25 20:52 Pulse Ox 97 04/07/25 20:52 O2 Del Method Room Air 04/07/25 20:52 Data NPU 03/29/25 14:56 03/29/25 14:56 A&P Assessment and plan 1. Paranoid schizophrenia: 2. Homicidal ideations: 3. Acute psychosis: Plan: 29-year-old female who presents with significant delusions with history of multiple inpatient hospitalizations currently on an involuntary hold and refusing any medications at this time. #1.Engage patient in individual, milieu, and group therapy. #2 therapeutic observation 15-minute checks. #3 Will attempt to gather collateral information including previous hospitalizations. #4 patient may require forced medications on an extended hold as she is currently refusing medications and is on a 96-hour hold. 21 day hold filed. Hearing was 04/08/2025 at 1500. She was placed on a 21-day hold. #5 Mother seeking emergency guardianship of patient and will support it with level 2. Guardianship hearing next week. #6 started Abilify 10 mg p.o. every morning. PDMP PDMP Reviewed: Not Reviewed Involuntary Hold Information 2 Hold Status: Legal Status: 21 Day Hold Date/Time Hold Expires: 04/29/2025 Attestations NPU 2 Medical Necessity Statement*: Inpatient hospitalization is medically necessary and the clinically appropriate intervention at this time. We will monitor/initiate medications and make changes as indicated. Patient's likely length of stay is 4-7 days. Coding Level of Care Code Acute Code for g Fwd Diagnoses Paranoid schizophrenia F20.0 Homicidal ideations R45.850 Acute psychosis F23
[2025-04-10 14:00] VITALS: BP 128/83; PULSE 91; RESP 16; O2SAT 96
--- NOTE | 2025-04-10 20:43 | PC.NURSE ---
vitals pt ref vs ststing no thanks . resp 18 charge notified
--- NOTE | 2025-04-11 06:48 | PC.NURSE ---
vitals pt ref vs resp 18
--- NOTE | 2025-04-11 12:45 | P.NPUPN_ITS ---
Subjective NPU 2 Subjective: Patient presented today reporting she is doing okay and adjusting well to the medications. We discussed agreeing to allowing for double portions that she get more vegetables. She also identified that she was aware of the guardianship hearing that is supposed to be next Monday. She did not appear to express any reason to fight that outcome. She endorsed that she was having no side effects of the medication and was accepting of her continued time here. Mental Status Exam 2 MSE Comments: Obese female who appeared her stated age with limited hygiene and normal gait.There was evidence of some odd facial tics appreciated. Her speech was normal in regards to volume with some increased latency in speech. Her mood was described as good. Her affect remained subdued. Her thought process was linear, logical, but superficial. Her thought content showed no evidence of suicidal or homicidal ideation currently. There was clear evidence of delusions including the belief that family members were possibly replaced by impostors. There was continued ideas of reference. She denied any auditory or visual hallucinations. She did not appear to be responding to internal stimuli. She was alert and oriented to person, place, time, and situation. Her insight is impaired. Her judgment is poor. Her impulse control appeared limited at this time. Vitals/I&O/Wt Last Vital Signs Temp 99.4 F 04/07/25 20:52 Pulse 91 04/10/25 14:00 Resp 16 04/10/25 14:00 BP 128/83 04/10/25 14:00 Pulse Ox 96 04/10/25 14:00 O2 Del Method Room Air 04/10/25 14:00 Data NPU 03/29/25 14:56 03/29/25 14:56 A&P Assessment and plan 1. Paranoid schizophrenia: 2. Homicidal ideations: 3. Acute psychosis: Plan: 29-year-old female who presents with significant delusions with history of multiple inpatient hospitalizations currently on an involuntary hold and refusing any medications at this time. #1.Engage patient in individual, milieu, and group therapy. #2 therapeutic observation 15-minute checks. #3 Will attempt to gather collateral information including previous hospitalizations. #4 patient may require forced medications on an extended hold as she is currently refusing medications and is on a 96-hour hold. 21 day hold filed. Hearing was 04/08/2025 at 1500. She was placed on a 21-day hold. #5 Mother seeking emergency guardianship of patient and will support it with level 2. Guardianship hearing next week. #6 started Abilify 10 mg p.o. every morning. PDMP PDMP Reviewed: Not Reviewed Involuntary Hold Information 2 Hold Status: Legal Status: 21 Day Hold Date/Time Hold Expires: 04/29/2025 Attestations NPU 2 Medical Necessity Statement*: Inpatient hospitalization is medically necessary and the clinically appropriate intervention at this time. We will monitor/initiate medications and make changes as indicated. Patient's likely length of stay is 4-7 days. Coding Level of Care Code Acute Code for [facility] Fwd Diagnoses Paranoid schizophrenia F20.0 Homicidal ideations R45.850 Acute psychosis F23
[2025-04-11 14:00] VITALS: BP 131/89; PULSE 91; RESP 16; TEMP 36.9; O2SAT 96
[2025-04-11 21:02] VITALS: BP 125/87; PULSE 98; RESP 18; TEMP 37.6; O2SAT 96
[2025-04-12 06:00] VITALS: RESP 18
--- NOTE | 2025-04-12 06:26 | PC.NURSE ---
pt refused vitals, pt laying in bed, resp 18, nurse informed
--- NOTE | 2025-04-12 12:52 | W.PM.NPUPNS ---
Subjective NPU Subjective: Patient presented today reporting that she doing all right. We discussed the fact that she had continued to be fairly isolative had encouraged her to try to be out more on the unit and engage in that treatment milieu. We discussed continued efforts by the treatment team to find an appropriate placement moving forward and she is appreciative of that. She reports that the medication seems to be helpful and we discussed the likelihood of transitioning to a long-acting injectable. Mental Status Exam MSE Comments: Obese female who appeared her stated age with limited hygiene and normal gait.There was evidence of some odd facial tics appreciated. Her speech was normal in regards to volume with some increased latency in speech. Her mood was described as good. Her affect remained subdued. Her thought process was linear, logical, but superficial. Her thought content showed no evidence of suicidal or homicidal ideation currently. There was clear evidence of delusions including the belief that family members were possibly replaced by impostors. There was continued ideas of reference. She denied any auditory or visual hallucinations. She did not appear to be responding to internal stimuli. She was alert and oriented to person, place, time, and situation. Her insight is impaired. Her judgment is poor. Her impulse control appeared limited at this time. Vitals/I&O/Wt Last Vital Signs Temp 99.7 F H 04/11/25 21:02 Pulse 98 04/11/25 21:02 Resp 18 04/12/25 06:00 BP 125/87 04/11/25 21:02 Pulse Ox 96 04/11/25 21:02 O2 Del Method Room Air 04/11/25 21:02 04/11/25 04/12/25 04/12/25 22:59 06:59 14:59 Intake Total 480 / 480 Balance 480 / 480 Data NPU 03/29/25 14:56 03/29/25 14:56 A&P Assessment and plan 1. Paranoid schizophrenia: 2. Homicidal ideations: 3. Acute psychosis: Plan: 29-year-old female who presents with significant delusions with history of multiple inpatient hospitalizations currently on an involuntary hold and refusing any medications at this time. #1.Engage patient in individual, milieu, and group therapy. #2 therapeutic observation 15-minute checks. #3 Will attempt to gather collateral information including previous hospitalizations. #4 patient may require forced medications on an extended hold as she is currently refusing medications and is on a 96-hour hold. 21 day hold filed. Hearing was 04/08/2025 at 1500. She was placed on a 21-day hold. #5 Mother seeking emergency guardianship of patient and will support it with level 2. Guardianship hearing next week. #6 started Abilify 10 mg p.o. every morning. PDMP PDMP Reviewed: Not Reviewed Involuntary Hold Information Hold Status: Legal Status: 21 Day Hold Date/Time Hold Expires: 04/29/2025 Attestations NPU Medical Necessity Statement*: Inpatient hospitalization is medically necessary and the clinically appropriate intervention at this time. We will monitor/initiate medications and make changes as indicated. Patient's likely length of stay is 3-6 days. Coding Level of Care Code Acute Code for [facility] Diagnoses Paranoid schizophrenia F20.0 Homicidal ideations R45.850 Acute psychosis F23
[2025-04-12 22:00] VITALS: BP 122/78; PULSE 102; RESP 14; TEMP 37.1; O2SAT 97
[2025-04-13] MEDS: phenyleph-mineral oil-petrolat Oint 28 gm 1 APPLIC TOPICAL (11:04)
[2025-04-13 13:41] VITALS: BP 136/76; PULSE 100; RESP 16; TEMP 36.2; O2SAT 98
--- NOTE | 2025-04-13 17:29 | P.NPUPN_ITS ---
Subjective NPU 2 Subjective: Patient presented today reporting that she is doing all right. She reports she is having some physical issues with pain in her anus but she could not really describe if it was something she has experienced in relation to her hemorrhoids or whether was related to like a proctalgia fugax or levator ani syndrome. She continued to reportedly be open to the plan to get her into some kind of program once the guardianship is finalized likely this week. She denied any side effects to her medication. Mental Status Exam 2 MSE Comments: Obese female who appeared her stated age with limited hygiene and normal gait.There was evidence of some odd facial tics appreciated. Her speech was normal in regards to volume with some increased latency in speech. Her mood was described as good. Her affect remained subdued. Her thought process was linear, logical, but superficial. Her thought content showed no evidence of suicidal or homicidal ideation currently. There was no evidence of delusions including Capgras Syndrome. There were continued ideas of reference. She denied any auditory or visual hallucinations. She did not appear to be responding to internal stimuli. She was alert and oriented to person, place, time, and situation. Her insight is impaired. Her judgment is poor. Her impulse control appeared limited at this time. Vitals/I&O/Wt Last Vital Signs Temp 97.1 F L 04/13/25 13:41 Pulse 100 04/13/25 13:41 Resp 16 04/13/25 13:41 BP 136/76 04/13/25 13:41 Pulse Ox 98 04/13/25 13:41 O2 Del Method Room Air 04/13/25 13:41 04/13/25 04/13/25 04/13/25 06:59 14:59 22:59 Intake Total 360 / 360 Balance 360 / 360 Data NPU 03/29/25 14:56 03/29/25 14:56 A&P Assessment and plan 1. Paranoid schizophrenia: 2. Homicidal ideations: 3. Acute psychosis: Plan: 29-year-old female who presents with significant delusions with history of multiple inpatient hospitalizations currently on an involuntary hold and refusing any medications at this time. #1.Engage patient in individual, milieu, and group therapy. #2 therapeutic observation 15-minute checks. #3 Will attempt to gather collateral information including previous hospitalizations. #4 patient may require forced medications on an extended hold as she is currently refusing medications and is on a 96-hour hold. 21 day hold filed. Hearing was 04/08/2025 at 1500. She was placed on a 21-day hold. #5 Mother seeking emergency guardianship of patient and will support it with level 2. Guardianship hearing is reportedly on Monday. #6 started Abilify 10 mg p.o. every morning. PDMP PDMP Reviewed: Not Reviewed Involuntary Hold Information 2 Hold Status: Legal Status: 21 Day Hold Date/Time Hold Expires: 04/29/2025 Attestations NPU 2 Medical Necessity Statement*: Inpatient hospitalization is medically necessary and the clinically appropriate intervention at this time. We will monitor/initiate medications and make changes as indicated. Patient's likely length of stay is 3-6 days. Coding Level of Care Code Acute Code for g [facility]wd Diagnoses Paranoid schizophrenia F20.0 Homicidal ideations R45.850 Acute psychosis F23
[2025-04-13 20:19] VITALS: BP 125/86; PULSE 120; RESP 19; TEMP 36.9; O2SAT 92
--- NOTE | 2025-04-14 08:00 | PC.NURSE ---
Pt. refused medication this am. Signee informed pt. that the Dr. may order an IM form of medication if PO meds are refused. Pt. said she was politely refusing. A short while later signee went and asked pt. all assessment questions which pt. answered. Signee then asked if signee could listen to lungs and pt. replied no nahed. I do not want you putting your hands on me. Signee will inform DrMikie that pt. refused am medications this am.
--- NOTE | 2025-04-14 11:10 | PC.NURSE ---
Dr. Mandujano gave the verbal order for Abilify 960mg IM Q 2 month. Signee called the out pt. pharmacy and pharmacist said they medication should be in tomorrow around this time.
--- NOTE | 2025-04-14 11:26 | PC.NURSE ---
Pt.'s mother called and said that pt. would not talk to her and is threatening to call authorities on her for human trafficking. The mother was talking with pt. about RCF's and Pt. is not having it. Pt. just wants to be released to be homeless.
--- NOTE | 2025-04-14 13:13 | P.NPUPN_ITS ---
Subjective NPU 2 Subjective: Patient presents today reporting that she feels okay in general. She was reporting some depressed mood especially secondary to feeling like her family has abandoned her and are no longer interested in a relationship with her. She reports that the Abilify seems to give her some weird taste that she cannot explain but that takes away pleasure from eating. We discussed the risks, benefits and alternatives of starting Invega and discontinuing the Abilify and she understood and agreed to proceed as is documented in this note. She denied any side effects to her medication other than the taste issue. Mental Status Exam 2 MSE Comments: This is an obese versus morbidly obese weight female in hospital scrubs who appeared her stated age with limited grooming and eye contact. There was evidence of some odd facial tics appreciated. Otherwise no abnormal movements 6 mild psychomotor retardation. Cooperative with exam in mild to moderate distress. Her speech was normal in regards to volume with some increased latency in speech slightly decreased rate. Her mood was described as okay but kind of sad that her family seems to have abandoned her. Her affect remained subdued. Her thought process was linear, logical, but superficial. Her thought content showed no evidence of suicidal or homicidal ideation currently. There was no evidence of delusions including Capgras Syndrome. There were continued ideas of reference. She denied any auditory or visual hallucinations. She did not appear to be responding to internal stimuli. She was alert and oriented to person, place, time, and situation. Her insight is limited but improving. Her judgment is poor. Her impulse control appeared limited at this time. Vitals/I&O/Wt Last Vital Signs Temp 98.4 F 04/13/25 20:19 Pulse 120 H 04/13/25 20:19 Resp 19 H 04/13/25 20:19 BP 125/86 04/13/25 20:19 Pulse Ox 92 04/13/25 20:19 O2 Del Method Room Air 04/13/25 20:19 Data NPU 03/29/25 14:56 03/29/25 14:56 A&P Assessment and plan 1. Paranoid schizophrenia: 2. Homicidal ideations: 3. Acute psychosis: Plan: 29-year-old female who presents with significant delusions with history of multiple inpatient hospitalizations currently on an involuntary hold and refusing any medications at this time. #1.Engage patient in individual, milieu, and group therapy. #2 therapeutic observation 15-minute checks. #3 Will attempt to gather collateral information including previous hospitalizations. #4 patient may require forced medications on an extended hold as she is currently refusing medications and is on a 96-hour hold. 21 day hold filed. Hearing was 04/08/2025 at 1500. She was placed on a 21-day hold. #5 Mother seeking emergency guardianship of patient and will support it with level 2. Guardianship hearing is reportedly on Monday. #6 started Abilify 10 mg p.o. every morning. Discontinue Abilify and start Invega 3 mg p.o. daily. PDMP PDMP Reviewed: Not Reviewed Involuntary Hold Information 2 Hold Status: Legal Status: 21 Day Hold Date/Time Hold Expires: 04/29/2025 Attestations NPU 2 Medical Necessity Statement*: Inpatient hospitalization is medically necessary and the clinically appropriate intervention at this time. We will monitor/initiate medications and make changes as indicated. Patient's likely length of stay is 3-6 days. Coding Level of Care Code Acute Code for [facility] Fwd Diagnoses Paranoid schizophrenia F20.0 Homicidal ideations R45.850 Acute psychosis F23
[2025-04-14 14:00] VITALS: BP 114/90; PULSE 103; RESP 18; TEMP 37.2; O2SAT 98
--- NOTE | 2025-04-14 16:04 | PC.NURSE ---
Pt. came up to the nurses station and said I would love to have a shot of Ativan if you have it. Signee informed pt. that Ativan is only given in certain circumstances.
[2025-04-14 20:26] VITALS: BP 141/95; PULSE 91; RESP 19; TEMP 37.2; O2SAT 98
--- NOTE | 2025-04-15 08:51 | PC.NURSE ---
Dr. Mandujano gave verbal order to DC Abilify and start Invega 3mg PO QD. Also DC the Abilify inj.
[2025-04-15 14:00] VITALS: BP 123/73; PULSE 100; RESP 18; TEMP 37; O2SAT 98
--- NOTE | 2025-04-15 16:28 | PC.NURSE ---
Gingeree talked to pt.'s mom and pt.'s mom said pt. was getting Ketamine in [place] at [facility]. Also, today pt.'s mom said that she changed her name because she was transitioning and taking hormone therapy and she believes she just ran out of money. Brennan talked to pt.'s mom when pt. first admitted and pt.'s mom did not disclose this information. The mom said she would like for the DrMikie to just put pt. on an injectable monthly dose of something because she feels like pt. will just end up refusing PO medication again.
--- NOTE | 2025-04-15 17:47 | P.NPUPN_ITS ---
Subjective NPU 2 Subjective: Patient presented today reporting that things are going all right. She denied that she was not having issues at this point with the twisting frame changer to Invega and we discussed the likelihood of continued titration of dose moving forward. We discussed that her guardianship hearing had been postponed to instead of today and that we have put out referrals for her placement already. She denied any side effects to her medication. Mental Status Exam 2 MSE Comments: This is an obese versus morbidly obese weight female in hospital scrubs who appeared her stated age with limited grooming and eye contact. There was less evidence of some odd facial tics appreciated. Otherwise no abnormal movements except for mild psychomotor retardation. Cooperative with exam in mild distress. Her speech was normal in regards to volume with no proceed latency in speech slightly decreased rate. Her mood was described as okay but kind of sad reporting that her family seems to have abandoned her. Her affect remained slightly subdued. Her thought process was linear, logical, but superficial. Her thought content showed no evidence of suicidal or homicidal ideation currently. There was no evidence of delusions including Capgras Syndrome. There were continued ideas of reference. She denied any auditory or visual hallucinations. She did not appear to be responding to internal stimuli. She was alert and oriented to person, place, time, and situation. Her insight is limited but improving. Her judgment is poor. Her impulse control appeared limited at this time. Vitals/I&O/Wt Last Vital Signs Temp 98.8 F 04/15/25 21:50 Pulse 104 H 04/15/25 21:50 Resp 16 04/15/25 21:50 BP 129/75 04/15/25 21:50 Pulse Ox 96 04/15/25 21:50 O2 Del Method Room Air 04/15/25 21:50 Data NPU 03/29/25 14:56 03/29/25 14:56 A&P Assessment and plan 1. Paranoid schizophrenia: 2. Homicidal ideations: 3. Acute psychosis: Plan: 29-year-old female who presents with significant delusions with history of multiple inpatient hospitalizations currently on an involuntary hold and refusing any medications at this time. #1.Engage patient in individual, milieu, and group therapy. #2 therapeutic observation 15-minute checks. #3 Will attempt to gather collateral information including previous hospitalizations. #4 patient may require forced medications on an extended hold as she is currently refusing medications and is on a 96-hour hold. 21 day hold filed. Hearing was 04/08/2025 at 1500. She was placed on a 21-day hold. #5 Mother seeking emergency guardianship of patient and will support it with level 2. Guardianship hearing has been postponed to . #6 started Abilify 10 mg p.o. every morning. Discontinue Abilify and start Invega 3 mg p.o. daily. Consider increase to 6 milligrams g p.o. daily of Invega. PDMP PDMP Reviewed: Not Reviewed Involuntary Hold Information 2 Hold Status: Legal Status: 21 Day Hold Date/Time Hold Expires: 04/29/2025 Attestations NPU 2 Medical Necessity Statement*: Inpatient hospitalization is medically necessary and the clinically appropriate intervention at this time. We will monitor/initiate medications and make changes as indicated. Patient's likely length of stay is 2-5 days. Coding Level of Care Code Acute Code for [facility] Diagnoses Paranoid schizophrenia F20.0 Homicidal ideations R45.850 Acute psychosis F23
[2025-04-15 21:50] VITALS: BP 129/75; PULSE 104; RESP 16; TEMP 37.1; O2SAT 96
--- NOTE | 2025-04-16 08:16 | PC.NURSE ---
Pt. allowed physical assessment this am.
[2025-04-16 14:00] VITALS: BP 140/78; PULSE 100; RESP 18; TEMP 36.8; O2SAT 98
--- NOTE | 2025-04-16 19:21 | W.PM.NPUPNS ---
Subjective NPU Subjective: Patient presented today reporting that she is feeling a little better. We discussed the risks, benefits and alternatives of increasing her Invega to 6 mg p.o. daily and she understood and agreed to proceed as documented in this note. We discussed the fact that her mom/guardian is wanting her to be on the long-acting injectable and that we recommend that this be the case regardless of her recommendation. She says she would consider the change and read and think about it. She denied any side effects to the medication. Mental Status Exam MSE Comments: This is an obese versus morbidly obese weight female in hospital scrubs who appeared her stated age with limited grooming and eye contact. There was less evidence of some odd facial tics appreciated. Otherwise no abnormal movements except for mild psychomotor retardation. Cooperative with exam in mild distress. Her speech was normal in regards to volume with no proceed latency in speech slightly decreased rate. Her mood was described as okay but kind of sad reporting that her family seems to have abandoned her. Her affect remained slightly subdued. Her thought process was linear, logical, but superficial. Her thought content showed no evidence of suicidal or homicidal ideation currently. There was no evidence of delusions including Capgras Syndrome. There were continued ideas of reference. She denied any auditory or visual hallucinations. She did not appear to be responding to internal stimuli. She was alert and oriented to person, place, time, and situation. Her insight is limited but improving. Her judgment is poor. Her impulse control appeared limited at this time. Vitals/I&O/Wt Last Vital Signs Temp 97.9 F 04/16/25 20:23 Pulse 119 H 04/16/25 20:23 Resp 18 04/16/25 20:23 BP 138/88 04/16/25 20:23 Pulse Ox 96 04/16/25 20:23 O2 Del Method Room Air 04/16/25 20:23 Data NPU 03/29/25 14:56 03/29/25 14:56 A&P Assessment and plan 1. Paranoid schizophrenia: 2. Homicidal ideations: 3. Acute psychosis: Plan: 29-year-old female who presents with significant delusions with history of multiple inpatient hospitalizations currently on an involuntary hold and refusing any medications at this time. #1.Engage patient in individual, milieu, and group therapy. #2 therapeutic observation 15-minute checks. #3 Will attempt to gather collateral information including previous hospitalizations. #4 patient may require forced medications on an extended hold as she is currently refusing medications and is on a 96-hour hold. 21 day hold filed. Hearing was 04/08/2025 at 1500. She was placed on a 21-day hold. #5 Mother seeking emergency guardianship of patient and will support it with level 2. Guardianship hearing has been postponed to . #6 started Abilify 10 mg p.o. every morning. Discontinue Abilify and start Invega 3 mg p.o. daily. Increase to 6 milligrams g p.o. daily of Invega. PDMP PDMP Reviewed: Not Reviewed Involuntary Hold Information Hold Status: Legal Status: 21 Day Hold Date/Time Hold Expires: 04/29/2025 Attestations NPU Medical Necessity Statement*: Inpatient hospitalization is medically necessary and the clinically appropriate intervention at this time. We will monitor/initiate medications and make changes as indicated. Patient's likely length of stay is 1-4 days. Coding Level of Care Code Acute Code for [facility] Fwd Diagnoses Paranoid schizophrenia F20.0 Homicidal ideations R45.850 Acute psychosis F23
[2025-04-16 20:23] VITALS: BP 138/88; PULSE 119; RESP 18; TEMP 36.6; O2SAT 96
--- NOTE | 2025-04-17 06:34 | PC.NURSE ---
vs not collected pt resting in bed charge notified resp 18
--- NOTE | 2025-04-17 11:55 | P.NPUPN_ITS ---
Subjective NPU 2 Subjective: Patient presented today reporting that she is doing okay. She endorsed having the issue with taste, again with this Invega. We discussed some of the ways to manage that symptom when it arises but also discussed that it could be related to something with the oral aspect and we discussed the risks, benefits and alternatives of getting the long-acting injectable loading dose of Invega and she understood and agreed to proceed as documented in this note. She denied any other side effects of the medication. Mental Status Exam 2 MSE Comments: This is an obese versus morbidly obese weight female in hospital scrubs who appeared her stated age with limited grooming and eye contact. There was less evidence of some odd facial tics appreciated. Otherwise no abnormal movements except for mild psychomotor retardation. Cooperative with exam in mild distress. Her speech was normal in regards to volume with no proceed latency in speech slightly decreased rate. Her mood was described as okay but kind of sad reporting that her family seems to have abandoned her. Her affect remained slightly subdued. Her thought process was linear, logical, but superficial. Her thought content showed no evidence of suicidal or homicidal ideation currently. There was no evidence of delusions including Capgras Syndrome. There were continued ideas of reference. She denied any auditory or visual hallucinations. She did not appear to be responding to internal stimuli. She was alert and oriented to person, place, time, and situation. Her insight is limited but improving. Her judgment is poor. Her impulse control appeared limited at this time. Vitals/I&O/Wt Last Vital Signs Temp 97.9 F 04/16/25 20:23 Pulse 119 H 04/16/25 20:23 Resp 18 04/16/25 20:23 BP 138/88 04/16/25 20:23 Pulse Ox 96 04/16/25 20:23 O2 Del Method Room Air 04/16/25 20:23 Data NPU 03/29/25 14:56 03/29/25 14:56 A&P Assessment and plan 1. Paranoid schizophrenia: 2. Homicidal ideations: 3. Acute psychosis: Plan: 29-year-old female who presents with significant delusions with history of multiple inpatient hospitalizations currently on an involuntary hold and refusing any medications at this time. #1.Engage patient in individual, milieu, and group therapy. #2 therapeutic observation 15-minute checks. #3 Will attempt to gather collateral information including previous hospitalizations. #4 patient may require forced medications on an extended hold as she is currently refusing medications and is on a 96-hour hold. 21 day hold filed. Hearing was 04/08/2025 at 1500. She was placed on a 21-day hold. #5 Mother seeking emergency guardianship of patient and will support it with level 2. Guardianship hearing has been postponed to . #6 started Abilify 10 mg p.o. every morning. Discontinue Abilify and start Invega 3 mg p.o. daily. Increased to 6 milligrams g p.o. daily of Invega. Give the Invega Sustenna loading dose 234 mg IM to deltoid since that is the loading dose. PDMP PDMP Reviewed: Not Reviewed Involuntary Hold Information 2 Hold Status: Legal Status: 21 Day Hold Date/Time Hold Expires: 04/29/2025 Attestations NPU 2 Medical Necessity Statement*: Inpatient hospitalization is medically necessary and the clinically appropriate intervention at this time. We will monitor/initiate medications and make changes as indicated. Patient's likely length of stay is 1-4 days. Coding Level of Care Code Acute Code for [facility] Fwd Diagnoses Paranoid schizophrenia F20.0 Homicidal ideations R45.850 Acute psychosis F23
[2025-04-17 14:00] VITALS: BP 129/78; PULSE 78; RESP 16; TEMP 36.6; O2SAT 99
[2025-04-17] MEDS: paliperidone palmitate 234 mg Syringe IM (17:41)
[2025-04-17 20:27] VITALS: BP 145/93; PULSE 102; RESP 17; TEMP 36.7; O2SAT 95
[2025-04-18 06:00] VITALS: RESP 14
--- NOTE | 2025-04-18 06:39 | PC.NURSE ---
pt asleep, vitals not collected, nurse aware, resp 14
--- NOTE | 2025-04-18 08:59 | W.PM.NPUPNS ---
Subjective NPU Subjective: Patient presented today reporting that she is doing all right. She reports that she still having some that odd taste to her food and we continue to discuss oral hygiene measures specially things that she can do when she leaves the hospital including chewing sugar-free gum and sour candy before meals to clean and cleanse her palate. Otherwise she reports social work team advised her that they did find a place that she could go and is a question of the bed date. She denied any other issues or side effects with her medication. Mental Status Exam MSE Comments: This is an obese versus morbidly obese weight female in hospital scrubs who appeared her stated age with limited grooming and eye contact. There was less evidence of some odd facial tics appreciated. Otherwise no abnormal movements except for mild psychomotor retardation. Cooperative with exam in mild distress. Her speech was normal in regards to volume with no proceed latency in speech slightly decreased rate. Her mood was described as okay but kind of sad reporting that her family seems to have abandoned her. Her affect remained slightly subdued. Her thought process was linear, logical, but superficial. Her thought content showed no evidence of suicidal or homicidal ideation currently. There was no evidence of delusions including Capgras Syndrome. There were continued ideas of reference. She denied any auditory or visual hallucinations. She did not appear to be responding to internal stimuli. She was alert and oriented to person, place, time, and situation. Her insight is limited but improving. Her judgment is poor. Her impulse control appeared limited at this time. Vitals/I&O/Wt Last Vital Signs Temp 98.0 F 04/17/25 20:27 Pulse 102 H 04/17/25 20:27 Resp 14 04/18/25 06:00 BP 145/93 04/17/25 20:27 Pulse Ox 95 04/17/25 20:27 O2 Del Method Room Air 04/17/25 20:27 Data NPU 03/29/25 14:56 03/29/25 14:56 A&P Assessment and plan 1. Paranoid schizophrenia: 2. Homicidal ideations: 3. Acute psychosis: Plan: 29-year-old female who presents with significant delusions with history of multiple inpatient hospitalizations currently on an involuntary hold and refusing any medications at this time. #1.Engage patient in individual, milieu, and group therapy. #2 therapeutic observation 15-minute checks. #3 Will attempt to gather collateral information including previous hospitalizations. #4 patient may require forced medications on an extended hold as she is currently refusing medications and is on a 96-hour hold. 21 day hold filed. Hearing was 04/08/2025 at 1500. She was placed on a 21-day hold. #5 Mother seeking emergency guardianship of patient and will support it with level 2. Guardianship hearing has been postponed to . #6 started Abilify 10 mg p.o. every morning. Discontinue Abilify and start Invega 3 mg p.o. daily. Increased to 6 milligrams g p.o. daily of Invega. The Invega Sustenna loading dose 234 mg IM to deltoid since that is the loading dose was given today 04/17/2025 with next loading dose 156 mg IM to the deltoid due to in 1 week ?4 days. Discontinue the oral dose of the Invega. PDMP PDMP Reviewed: Not Reviewed Involuntary Hold Information Hold Status: Legal Status: 21 Day Hold Date/Time Hold Expires: 04/29/2025 Attestations NPU Medical Necessity Statement*: Inpatient hospitalization is medically necessary and the clinically appropriate intervention at this time. We will monitor/initiate medications and make changes as indicated. Patient's likely length of stay is 3-4 days. Coding Level [facility] Care Code [facility] Paranoid schizophrenia F20.0 Homicidal ideations R45.850 Acute psychosis F23
[2025-04-18 13:43] VITALS: BP 137/87; PULSE 110; RESP 16; TEMP 36.6; O2SAT 98
[2025-04-18 21:12] VITALS: BP 125/85; PULSE 103; RESP 17; TEMP 36.5; O2SAT 98
[2025-04-19 06:00] VITALS: RESP 17
--- NOTE | 2025-04-19 06:33 | PC.NURSE ---
vitals not done, pt asleep, nurse aware, resp 17
--- NOTE | 2025-04-19 13:34 | W.PM.NPUPNS ---
Subjective NPU Subjective: Patient presented today reporting that she is doing all right. She was very interested in if we were aware of her acceptance and that program. We discussed that the social work team was following up with Amanda Lebron to determine if we had any more information on whether she was accepted in the timeframe to her placement. We discussed the fact that at this time this telegraphic typewriter operator was unaware. We discussed Dr. Scherer returning tomorrow and that he would continue the plan and assist with transitioning her to that or what ever program is identified for her. We discussed that she may be getting her second loading dose of Invega 156 mg IM to the deltoid shortly. She denied any side effects of the medication. Mental Status Exam MSE Comments: This is an obese versus morbidly obese weight female in hospital scrubs who appeared her stated age with limited grooming and eye contact. There was no clear evidence of any facial tics appreciated. Otherwise no abnormal movements except for mild psychomotor retardation. Cooperative with exam in mild distress. Her speech was normal in regards to volume with no proceed latency in speech slightly decreased rate. Her mood was described as okay but kind of sad reporting that her family seems to have abandoned her. Her affect remained slightly subdued. Her thought process was linear, logical, but superficial. Her thought content showed no evidence of suicidal or homicidal ideation currently. There was no evidence of delusions including Capgras Syndrome. There were continued ideas of reference. She denied any auditory or visual hallucinations. She did not appear to be responding to internal stimuli. She was alert and oriented to person, place, time, and situation. Her insight is limited but improving. Her judgment is poor. Her impulse control appeared limited at this time. Vitals/I&O/Wt Last Vital Signs Temp 97.7 F 04/18/25 21:12 Pulse 103 H 04/18/25 21:12 Resp 17 04/19/25 06:00 BP 125/85 04/18/25 21:12 Pulse Ox 98 04/18/25 21:12 O2 Del Method Room Air 04/18/25 21:12 Data NPU 03/29/25 14:56 03/29/25 14:56 A&P Assessment and plan 1. Paranoid schizophrenia: 2. Homicidal ideations: 3. Acute psychosis: Plan: 29-year-old female who presents with significant delusions with history of multiple inpatient hospitalizations currently on an involuntary hold and refusing any medications at this time. #1.Engage patient in individual, milieu, and group therapy. #2 therapeutic observation 15-minute checks. #3 Will attempt to gather collateral information including previous hospitalizations. #4 patient may require forced medications on an extended hold as she is currently refusing medications and is on a 96-hour hold. 21 day hold filed. Hearing was 04/08/2025 at 1500. She was placed on a 21-day hold. #5 Mother seeking emergency guardianship of patient and will support it with level 2. Guardianship hearing took place 04/17/2025. #6 started Abilify 10 mg p.o. every morning. Discontinue Abilify and start Invega 3 mg p.o. daily. Increased to 6 milligrams g p.o. daily of Invega. The Invega Sustenna loading dose 234 mg IM to deltoid since that is the loading dose was given today 04/17/2025 with next loading dose 156 mg IM to the deltoid due to in 1 week ?4 days. Discontinue the oral dose of the Invega. #7 patient awaiting word from [facility] but last report was that the interview went well and they will likely accept her. PDMP PDMP Reviewed: Not Reviewed Involuntary Hold Information Hold Status: Legal Status: 21 Day Hold Date/Time Hold Expires: 04/29/2025 Attestations NPU Medical Necessity Statement*: Inpatient hospitalization is medically necessary and the clinically appropriate intervention at this time. We will monitor/initiate medications and make changes as indicated. Patient's likely length of stay is 3-4 days. Coding Level of Care Code Acute Code for [facility] Fwd Diagnoses Paranoid schizophrenia F20.0 Homicidal ideations R45.850 Acute psychosis F23
[2025-04-19 14:00] VITALS: BP 115/70; PULSE 92; RESP 16; TEMP 36.8; O2SAT 98
[2025-04-20 06:00] VITALS: BP 128/80; PULSE 92; RESP 18; TEMP 36.4; O2SAT 100
[2025-04-20 14:00] VITALS: BP 125/76; PULSE 82; RESP 17; TEMP 36.4; O2SAT 98
--- NOTE | 2025-04-20 16:19 | P.NPUPN_ITS ---
Subjective NPU 2 Subjective: 29-year-old female admitted with homicid al ideation with a history of schizophrenia. Patient reported that she was doing fine. The patient had reported no side effects from her medication. She had reported that she had felt like she would be able to go to placement soon. She continued to be somewhat guarded about her current problems as she had stated that this commercial underwriter asked to many questions. The patient had not appeared to be aware of any recent results of a guardianship hearing. Mental Status Exam 2 MSE Comments: This is an obese versus morbidly obese weight female in hospital scrubs who appeared her stated age with poor grooming and eye contact. There was no clear evidence of any facial tics appreciated. She was superficially cooperative with exam in minimal distress. Her speech was normal in regards to volume with some increase in latency of speech. Her mood was described as ok. Her affect remained slightly subdued. Her thought process was linear, logical, but superficial. Her thought content showed no evidence of suicidal or homicidal ideation currently. There was no evidence of delusions including Capgras Syndrome. There were continued ideas of reference. She denied any auditory or visual hallucinations. She did not appear to be responding to internal stimuli. She was alert and oriented to person, place, time, and situation. Her insight is limited but improving. Her judgment is poor. Her impulse control appeared limited at this time. Vitals/I&O/Wt Last Vital Signs Temp 97.6 F 04/20/25 14:00 Pulse 82 04/20/25 14:00 Resp 17 04/20/25 14:00 BP 125/76 04/20/25 14:00 Pulse Ox 98 04/20/25 14:00 O2 Del Method Room Air 04/20/25 06:00 Data NPU 03/29/25 14:56 03/29/25 14:56 A&P Assessment and plan 1. Paranoid schizophrenia: 2. Homicidal ideations: 3. Acute psychosis: Plan: 29-year-old female who presents with significant delusions with history of multiple inpatient hospitalizations currently on an involuntary hold and refusing any medications at this time. #1.Engage patient in individual, milieu, and group therapy. #2 therapeutic observation 15-minute checks. #3 Will attempt to gather collateral information including previous hospitalizations. #4 patient may require forced medications on an extended hold as she is currently refusing medications and is on a 96-hour hold. 21 day hold filed. Hearing was 04/08/2025 at 1500. She was placed on a 21-day hold. #5 Mother seeking emergency guardianship of patient and will support it with level 2. Guardianship hearing took place 04/17/2025. #6 started Abilify 10 mg p.o. every morning. Discontinue Abilify and start Invega 3 mg p.o. daily. Increased to 6 milligrams g p.o. daily of Invega. The Invega Sustenna loading dose 234 mg IM to deltoid since that is the loading dose was given today 04/17/2025 with next loading dose 156 mg IM to the deltoid due to in between 04/22-04/24/25. Discontinue the oral dose of the Invega. #7 patient awaiting word from [facility] but last report was that the interview went well and they will likely accept her. PDMP PDMP Reviewed: Not Reviewed Involuntary Hold Information 2 Hold Status: Legal Status: 21 Day Hold Date/Time Hold Expires: 04/29/2025 Attestations NPU 2 Medical Necessity Statement*: Inpatient hospitalization is medically necessary and the clinically appropriate intervention at this time. We will monitor/initiate medications and make changes as indicated. Patient's likely length of stay is 4-6 days. Coding Level of Care Code Acute Code for g Fwd Diagnoses Paranoid schizophrenia F20.0 Homicidal ideations R45.850 Acute psychosis F23
[2025-04-20 21:55] VITALS: BP 145/92; PULSE 103; RESP 19; TEMP 36.4; O2SAT 100
[2025-04-21 06:00] VITALS: RESP 16
--- NOTE | 2025-04-21 06:36 | PC.NURSE ---
vitals not done nurse aware pt sleeping resp 16
[2025-04-21 14:00] VITALS: BP 112/78; PULSE 101; RESP 16; TEMP 36.7; O2SAT 100
--- NOTE | 2025-04-21 16:37 | P.NPUPN_ITS ---
Subjective NPU 2 Subjective: 29-year-old female admitted with homicid al ideation with a history of schizophrenia. Patient was able to attend groups. She had remained superficially cooperative. She had hopes that no one would except her and hoped that she would be able to return to live with her mother. She had denied any auditory or visual hallucinations at this time. She had reported having a good mood and stated that she felt comfortable with continuing to take her medications as prescribed. Mental Status Exam 2 MSE Comments: This is an obese versus morbidly obese weight female in hospital scrubs who appeared her stated age with poor grooming and eye contact. There was a tic under the left side of her eye. She was superficially cooperative with exam in minimal distress. Her speech was normal in regards to volume and rate. Her mood was described as good. Her affect remained slightly subdued. Her thought process was linear, logical, but superficial. Her thought content showed no evidence of suicidal or homicidal ideation currently. There was no evidence of delusions including Capgras Syndrome. There were no overt ideas of reference. She denied any auditory or visual hallucinations. She did not appear to be responding to internal stimuli. She was alert and oriented to person, place, time, and situation. Her insight is limited but improving. Her judgment is poor. Her impulse control appeared fair at this time. Vitals/I&O/Wt Last Vital Signs Temp 98.1 F 04/21/25 14:00 Pulse 101 H 04/21/25 14:00 Resp 16 04/21/25 14:00 BP 112/78 04/21/25 14:00 Pulse Ox 100 04/21/25 14:00 O2 Del Method Room Air 04/21/25 14:00 Data NPU 03/29/25 14:56 03/29/25 14:56 A&P Assessment and plan 1. Paranoid schizophrenia: 2. Homicidal ideations: 3. Acute psychosis: Plan: 29-year-old female who presents with significant delusions with history of multiple inpatient hospitalizations currently on an involuntary hold and refusing any medications at this time. #1.Engage patient in individual, milieu, and group therapy. #2 therapeutic observation 15-minute checks. #3 Will attempt to gather collateral information including previous hospitalizations. #4 patient may require forced medications on an extended hold as she is currently refusing medications and is on a 96-hour hold. 21 day hold filed. Hearing was 04/08/2025 at 1500. She was placed on a 21-day hold. #5 Mother seeking emergency guardianship of patient and will support it with level 2. Guardianship hearing took place 04/17/2025. #6 started Abilify 10 mg p.o. every morning. Discontinue Abilify and start Invega 3 mg p.o. daily. Increased to 6 milligrams g p.o. daily of Invega. The Invega Sustenna loading dose 234 mg IM to deltoid since that is the loading dose was given today 04/17/2025 with next loading dose 156 mg IM to the deltoid due to in between 04/22-04/24/25. Discontinue the oral dose of the Invega. #7 Will continue to seek placement. [place] is not an option anymore. PDMP PDMP Reviewed: Not Reviewed Involuntary Hold Information 2 Hold Status: Legal Status: 21 Day Hold Date/Time Hold Expires: 04/29/2025 Attestations NPU 2 Medical Necessity Statement*: Inpatient hospitalization is medically necessary and the clinically appropriate intervention at this time. We will monitor/initiate medications and make changes as indicated. Patient's likely length of stay is 5-7 days. Coding Level of Care Code Acute Code for [facility] Fwd Diagnoses Paranoid schizophrenia F20.0 Homicidal ideations R45.850 Acute psychosis F23
[2025-04-21 19:38] VITALS: BP 152/95; PULSE 95; RESP 17; TEMP 36.8; O2SAT 95
--- NOTE | 2025-04-22 06:12 | PC.NURSE ---
vitals vs not collected pt resting in bed with both eyes closed resp 17
--- NOTE | 2025-04-22 13:08 | P.NPUPN_ITS ---
Subjective NPU 2 Subjective: 29-year-old female admitted with homicid al ideation with a history of schizophrenia. Patient was able to attend groups. The patient had not been refusing any medications. She had not required any as needed medications. She had reported no side effects from her medication regimen. She had stated that she hoped that she would be able to return to live with her mother if no placement was found. She had reported that she was doing fine. She had minimized any hallucinations at this time. Mental Status Exam 2 MSE Comments: This is an obese versus morbidly obese weight female in hospital scrubs who appeared her stated age with fair grooming and eye contact. There was a motor tic on the left side of eye. She was superficially cooperative with exam in minimal distress. Her speech was normal in regards to volume and rate. Her mood was described as fine. Her affect remained slightly subdued. Her thought process was linear, logical, but superficial. Her thought content showed no evidence of suicidal or homicidal ideation currently. There was no evidence of delusions including Capgras Syndrome. There were no overt ideas of reference. She denied any auditory or visual hallucinations. She did not appear to be responding to internal stimuli. She continued to appear guarded at this time. She was alert and oriented to person, place, time, and situation. Her insight is limited but improving. Her judgment is poor. Her impulse control appeared fair at this time. Vitals/I&O/Wt Last Vital Signs Temp 98.2 F 04/21/25 19:38 Pulse 95 04/21/25 19:38 Resp 17 04/21/25 19:38 BP 152/95 04/21/25 19:38 Pulse Ox 95 04/21/25 19:38 O2 Del Method Room Air 04/21/25 19:38 Data NPU 03/29/25 14:56 03/29/25 14:56 A&P Assessment and plan 1. Paranoid schizophrenia: 2. Homicidal ideations: 3. Acute psychosis: Plan: 29-year-old female who presents with significant delusions with history of multiple inpatient hospitalizations currently on an involuntary hold and refusing any medications at this time. #1.Engage patient in individual, milieu, and group therapy. #2 therapeutic observation 15-minute checks. #3 Will attempt to gather collateral information including previous hospitalizations. #4 patient may require forced medications on an extended hold as she is currently refusing medications and is on a 96-hour hold. 21 day hold filed. Hearing was 04/08/2025 at 1500. She was placed on a 21-day hold. #5 Mother seeking emergency guardianship of patient and will support it with level 2. Guardianship hearing took place 04/17/2025.Mother granted temporary guardianship. #6 started Abilify 10 mg p.o. every morning. Discontinue Abilify and start Invega 3 mg p.o. daily. Increased to 6 milligrams g p.o. daily of Invega. The Invega Sustenna loading dose 234 mg IM to deltoid since that is the loading dose was given today 04/17/2025 with next loading dose 156 mg IM to the deltoid due to on 04/23/25. Discontinue the oral dose of the Invega. #7 Will continue to seek placement. [facility] is not an option anymore. PDMP PDMP Reviewed: Not Reviewed Involuntary Hold Information 2 Hold Status: Legal Status: 21 Day Hold Date/Time Hold Expires: 04/29/2025 Attestations NPU 2 Medical Necessity Statement*: Inpatient hospitalization is medically necessary and the clinically appropriate intervention at this time. We will monitor/initiate medications and make changes as indicated. Patient's likely length of stay is 5-7 days. Coding Level of Care Code Acute Code for [facility] Fwd Diagnoses Paranoid schizophrenia F20.0 Homicidal ideations R45.850 Acute psychosis F23
[2025-04-22 14:00] VITALS: BP 150/87; PULSE 97; RESP 16; TEMP 36.6; O2SAT 98
[2025-04-22 19:56] VITALS: BP 142/89; PULSE 96; RESP 18; TEMP 36.6; O2SAT 98
--- NOTE | 2025-04-23 06:28 | PC.NURSE ---
vs not collected pt laying in bed resting with both eyes closed
[2025-04-23] MEDS: paliperidone palmitate 156 mg Syringe IM (13:53)
[2025-04-23 14:00] VITALS: BP 131/95; PULSE 104; RESP 18; TEMP 36.6; O2SAT 97
--- NOTE | 2025-04-23 14:32 | P.NPUPN_ITS ---
Subjective NPU 2 Subjective: 29-year-old female admitted with homicid al ideation with a history of schizophrenia. The patient had remained somewhat isolative and guarded on the milieu. She had reported that she was unsure as to whether she would be able to go to her mother's home and wanted there to be another option such as a group home until she could go into an independent living facility. She reported no side effects from her medication. She had received her second shot of Invega at 156 mg today. She minimized having any problems here on the unit although she did complain of having a tick in her eye which was described as annoying. Mental Status Exam 2 MSE Comments: This is an obese versus morbidly obese weight female in hospital scrubs who appeared her stated age with fair grooming and eye contact. There was a motor tic on the left side of eye. She was superficially cooperative with exam in minimal distress. Her speech was normal in regards to volume and rate. Her mood was described as fine. Her affect remained slightly subdued. Her thought process was linear, logical, but superficial. Her thought content showed no evidence of suicidal or homicidal ideation currently. There was no evidence of delusions including Capgras Syndrome. There were no overt ideas of reference. She denied any auditory or visual hallucinations. She did not appear to be responding to internal stimuli. She continued to appear guarded at this time. She was alert and oriented to person, place, time, and situation. Her insight is limited but improving. Her judgment is poor. Her impulse control appeared fair at this time. Vitals/I&O/Wt Last Vital Signs Temp 97.9 F 04/23/25 14:00 Pulse 104 H 04/23/25 14:00 Resp 18 04/23/25 14:00 BP 131/95 04/23/25 14:00 Pulse Ox 97 04/23/25 14:00 O2 Del Method Room Air 04/23/25 14:00 Data NPU 03/29/25 14:56 03/29/25 14:56 A&P Assessment and plan 1. Paranoid schizophrenia: 2. Homicidal ideations: 3. Acute psychosis: Plan: 29-year-old female who presents with significant delusions with history of multiple inpatient hospitalizations currently on an involuntary hold and refusing any medications at this time. #1.Engage patient in individual, milieu, and group therapy. #2 therapeutic observation 15-minute checks. #3 Will attempt to gather collateral information including previous hospitalizations. #4 patient may require forced medications on an extended hold as she is currently refusing medications and is on a 96-hour hold. 21 day hold filed. Hearing was 04/08/2025 at 1500. She was placed on a 21-day hold. #5 Mother seeking emergency guardianship of patient and will support it with level 2. Guardianship hearing took place 04/17/2025.Mother granted temporary guardianship. #6 started Abilify 10 mg p.o. every morning. Discontinue Abilify and start Invega 3 mg p.o. daily. Increased to 6 milligrams g p.o. daily of Invega. The Invega Sustenna loading dose 234 mg IM to deltoid since that is the loading dose was given 04/17/2025 with next loading dose 156 mg IM to the deltoid given 04/23/25. #7 Will continue to seek placement. Level 2 has been completed. Brief trial of B6 for targeting TD at 200mg day. PDMP PDMP Reviewed: Not Reviewed Involuntary Hold Information 2 Hold Status: Legal Status: Active Guardianship Date/Time Hold Expires: 1 06/30/2024 Attestations NPU 2 Medical Necessity Statement*: Inpatient hospitalization is medically necessary and the clinically appropriate intervention at this time. We will monitor/initiate medications and make changes as indicated. Patient's likely length of stay is 5-7 days. Coding Level of Care Code Acute Code for g Fwd Diagnoses Paranoid schizophrenia F20.0 Homicidal ideations R45.850 Acute psychosis F23
[2025-04-23 20:40] VITALS: BP 129/85; PULSE 112; RESP 18; TEMP 37.2; O2SAT 95
--- NOTE | 2025-04-24 06:19 | PC.NURSE ---
vitals vs not collected pt resting in bed with both eyes closed resp 18 nurse notified
[2025-04-24] MEDS: multivitamin therapeutic Tablet 1 TAB PO (07:38)
[2025-04-24 14:00] VITALS: BP 141/94; PULSE 107; RESP 18; TEMP 36.8; O2SAT 96
--- NOTE | 2025-04-24 15:06 | W.PM.NPUPNS ---
Subjective NPU Subjective: 29-year-old female admitted with homicidal ideation with a history of schizophrenia. The patient reported no side effects from her medication. She had been informed that an immediate placement was not likely. The patient had reported adequate sleep. She continued to report having a tick that appeared to involuntarily above her left eye. She reported no side effects from her Invega. She remained somewhat isolative but appeared to be busy completing [employer] puzzles by herself. She reported good appetite. She reported having no auditory hallucinations or visual hallucinations. She had made little mention about having any paranoia and did not report feeling as if her family members were replaced by impostors. Mental Status Exam MSE Comments: This is an obese versus morbidly obese weight female in hospital scrubs who appeared her stated age with fair grooming and eye contact. There was a motor tic on the left side of eye. She was superficially but pleasantly cooperative with exam in minimal distress. Her speech was normal in regards to volume and rate and prosody. Her mood was described as fine. Her affect remained slightly subdued. Her thought process was linear, logical, but superficial. Her thought content showed no evidence of suicidal or homicidal ideation currently. There was no evidence of delusions including Capgras Syndrome. There were no overt ideas of reference. She denied any auditory or visual hallucinations. She did not appear to be responding to internal stimuli. She remained somewhat guarded. She was alert and oriented to person, place, time, and situation. Her insight is limited but improving. Her judgment is limited. Her impulse control appeared fair at this time. Vitals/I&O/Wt Last Vital Signs Temp 98.3 F 04/24/25 14:00 Pulse 107 H 04/24/25 14:00 Resp 18 04/24/25 14:00 BP 141/94 04/24/25 14:00 Pulse Ox 96 04/24/25 14:00 O2 Del Method Room Air 04/24/25 14:00 Data NPU 03/29/25 14:56 03/29/25 14:56 A&P Assessment and plan 1. Paranoid schizophrenia: 2. Homicidal ideations: 3. Acute psychosis: Plan: 29-year-old female who presents with significant delusions with history of multiple inpatient hospitalizations currently on an involuntary hold and refusing any medications at this time. #1.Engage patient in individual, milieu, and group therapy. #2 therapeutic observation 15-minute checks. #3 Will attempt to gather collateral information including previous hospitalizations. #4 patient may require forced medications on an extended hold as she is currently refusing medications and is on a 96-hour hold. 21 day hold filed. Hearing was 04/08/2025 at 1500. She was placed on a 21-day hold. #5 Mother seeking emergency guardianship of patient and will support it with level 2. Guardianship hearing took place 04/17/2025.Mother granted temporary guardianship. #6 started Abilify 10 mg p.o. every morning. Discontinue Abilify and start Invega 3 mg p.o. daily. Increased to 6 milligrams g p.o. daily of Invega. The Invega Sustenna loading dose 234 mg IM to deltoid since that is the loading dose was given 04/17/2025 with next loading dose 156 mg IM to the deltoid given 04/23/25. #7 Will continue to seek placement. Level 2 has been completed. Evaluation for Level 2 placement is scheduled. Increase B6 to 150mg bid. #8 Likely discharge home or to a nursing home in 2 days. PDMP PDMP Reviewed: Not Reviewed Involuntary Hold Information Hold Status: Legal Status: Active Guardianship Date/Time Hold Expires: 04/29/2025 Attestations NPU Medical Necessity Statement*: Inpatient hospitalization is medically necessary and the clinically appropriate intervention at this time. We will monitor/initiate medications and make changes as indicated. Patient's likely length of stay is 2-3 days. Coding Level of Care Code Acute Code for [facility] Diagnoses Paranoid schizophrenia F20.0 Homicidal ideations R45.850 Acute psychosis F23
[2025-04-24 20:29] VITALS: BP 121/81; PULSE 105; RESP 18; TEMP 36.4; O2SAT 97
[2025-04-25 06:00] VITALS: RESP 16
--- NOTE | 2025-04-25 06:33 | PC.NURSE ---
pt vitals not done, pt asleep in bed, resp 16, nurse aware
[2025-04-25] MEDS: multivitamin therapeutic Tablet 1 TAB PO (07:32)
[2025-04-25 12:44] VITALS: BP 131/79; PULSE 117; RESP 16; TEMP 36.8; O2SAT 96
--- NOTE | 2025-04-25 14:59 | P.NPUPN_ITS ---
Subjective NPU 2 Subjective: 29-year-old female admitted with homicid al ideation with a history of schizophrenia. The patient had expressed ambivalence about going to [facility] to reside as she stated that she still wished to live with her mother. Patient was informed that the mother did not feel that that was an immediate option for her. She had been redirectable on the milieu and appeared somewhat isolative. She did not endorse any concerns about her future. She appeared to be appropriately engaged in self-care. She reported having less eye tics. Mental Status Exam 2 MSE Comments: This is an obese versus morbidly obese weight female in hospital scrubs who appeared her stated age with fair grooming and eye contact. There was no clear evidence of a tic currently. She was superficially but pleasantly cooperative with exam in minimal distress. Her speech was normal in regards to volume and rate and prosody. Her mood was described as good. Her affect remained slightly subdued. Her thought process was linear, logical, but superficial. Her thought content showed no evidence of suicidal or homicidal ideation currently. There was no evidence of delusions including Capgras Syndrome. There were no overt ideas of reference. She denied any auditory or visual hallucinations. She did not appear to be responding to internal stimuli. She remained somewhat guarded. She was alert and oriented to person, place, time, and situation. Her insight is limited. Her judgment is limited. Her impulse control appeared fair at this time. Vitals/I&O/Wt Last Vital Signs Temp 98.2 F 04/25/25 12:44 Pulse 117 H 04/25/25 12:44 Resp 16 04/25/25 12:44 BP 131/79 04/25/25 12:44 Pulse Ox 96 04/25/25 12:44 O2 Del Method Room Air 04/25/25 12:44 Data NPU 03/29/25 14:56 03/29/25 14:56 A&P Assessment and plan 1. Paranoid schizophrenia: 2. Homicidal ideations: 3. Acute psychosis: Plan: 29-year-old female who presents with significant delusions with history of multiple inpatient hospitalizations currently on an involuntary hold and refusing any medications at this time. #1.Engage patient in individual, milieu, and group therapy. #2 therapeutic observation 15-minute checks. #3 Will attempt to gather collateral information including previous hospitalizations. #4 patient may require forced medications on an extended hold as she is currently refusing medications and is on a 96-hour hold. 21 day hold filed. Hearing was 04/08/2025 at 1500. She was placed on a 21-day hold. #5 Mother seeking emergency guardianship of patient and will support it with level 2. Guardianship hearing took place 04/17/2025.Mother granted temporary guardianship. #6 started Abilify 10 mg p.o. every morning. Discontinue Abilify and start Invega 3 mg p.o. daily. Increased to 6 milligrams g p.o. daily of Invega. The Invega Sustenna loading dose 234 mg IM to deltoid since that is the loading dose was given 04/17/2025 with next loading dose 156 mg IM to the deltoid given 04/23/25. #7 Will continue to seek placement. Level 2 has been completed. Evaluation for Level 2 placement is scheduled. Continue B6 to 150mg bid. #8 Likely discharge to [facility] directly on Monday04/28/25. PDMP PDMP Reviewed: Not Reviewed Involuntary Hold Information 2 Hold Status: Legal Status: Active Guardianship Date/Time Hold Expires: 1 06/30/2024 Attestations NPU 2 Medical Necessity Statement*: Inpatient hospitalization is medically necessary and the clinically appropriate intervention at this time. We will monitor/initiate medications and make changes as indicated. Patient's likely length of stay is 3-5 days. Coding Level of Care Code Acute Code for [facility] Diagnoses Paranoid schizophrenia F20.0 Homicidal ideations R45.850 Acute psychosis F23
[2025-04-25 20:14] VITALS: BP 139/90; PULSE 111; RESP 17; TEMP 37.3; O2SAT 98
[2025-04-26 06:00] VITALS: RESP 16
--- NOTE | 2025-04-26 06:38 | PC.NURSE ---
vs not collected pt sleeping soundly, nurse notified, resp 16
[2025-04-26] MEDS: multivitamin therapeutic Tablet 1 TAB PO (07:45)
--- NOTE | 2025-04-26 11:31 | P.NPUPN_ITS ---
Subjective NPU 2 Subjective: 29-year-old female admitted with homicid al ideation with a history of schizophrenia. The patient currently is under temporary guardianship under her mother. She had reported that she was feeling better. She had continued to endorse that she would prefer to take no medications at all and indicated that marijuana was the best medication for her to help her manage some of her problems. She had remained somewhat isolative on the milieu. She had reported that she was doing fine and stated that she would be willing to go to [facility] on discharge. Mental Status Exam 2 MSE Comments: This is an obese versus morbidly obese weight female in hospital scrubs who appeared her stated age with fair grooming and eye contact. There was no clear evidence of a tic currently. She was superficially but pleasantly cooperative with exam in minimal distress. Her speech was normal in regards to volume and rate and prosody. Her mood was described as fine. Her affect remained slightly subdued. Her thought process was linear, logical, but superficial. Her thought content showed no evidence of suicidal or homicidal ideation currently. There was no evidence of delusions including Capgras Syndrome. There were no overt ideas of reference. She denied any auditory or visual hallucinations. She did not appear to be responding to internal stimuli. She remained somewhat guarded. She was alert and oriented to person, place, time, and situation. Her insight is limited. Her judgment is limited. Her impulse control appeared fair at this time. Vitals/I&O/Wt Last Vital Signs Temp 99.1 F 04/25/25 20:14 Pulse 111 H 04/25/25 20:14 Resp 16 04/26/25 06:00 BP 139/90 04/25/25 20:14 Pulse Ox 98 04/25/25 20:14 O2 Del Method Room Air 04/25/25 20:14 Data NPU 03/29/25 14:56 03/29/25 14:56 A&P Assessment and plan 1. Paranoid schizophrenia: 2. Homicidal ideations: 3. Acute psychosis: Plan: 29-year-old female who presents with significant delusions with history of multiple inpatient hospitalizations currently on an involuntary hold and refusing any medications at this time. #1.Engage patient in individual, milieu, and group therapy. #2 therapeutic observation 15-minute checks. #3 Will attempt to gather collateral information including previous hospitalizations. #4 patient may require forced medications on an extended hold as she is currently refusing medications and is on a 96-hour hold. 21 day hold filed. Hearing was 04/08/2025 at 1500. She was placed on a 21-day hold. #5 Mother seeking emergency guardianship of patient and will support it with level 2. Guardianship hearing took place 04/17/2025.Mother granted temporary guardianship. #6 started Abilify 10 mg p.o. every morning. Discontinue Abilify and start Invega 3 mg p.o. daily. Increased to 6 milligrams g p.o. daily of Invega. The Invega Sustenna loading dose 234 mg IM to deltoid since that is the loading dose was given 04/17/2025 with next loading dose 156 mg IM to the deltoid given 04/23/25. #7 Will continue to seek placement. Level 2 has been completed. Evaluation for Level 2 placement is scheduled. Continue B6 to 150mg bid. #8 Likely discharge to [facility] with guardian when bed becomes available on Monday04/28/25. PDMP PDMP Reviewed: Not Reviewed Involuntary Hold Information 2 Hold Status: Legal Status: Active Guardianship Date/Time Hold Expires: 1 06/30/2024 Attestations NPU 2 Medical Necessity Statement*: Inpatient hospitalization is medically necessary and the clinically appropriate intervention at this time. We will monitor/initiate medications and make changes as indicated. Patient's likely length of stay is 2-3 days. Coding Level of Care Code Acute Code for [facility] Fwd Diagnoses Paranoid schizophrenia F20.0 Homicidal ideations R45.850 Acute psychosis F23
[2025-04-26 13:16] VITALS: BP 122/74; PULSE 118; RESP 16; TEMP 37.1; O2SAT 97
[2025-04-26 22:00] VITALS: RESP 16
--- NOTE | 2025-04-26 22:47 | PC.NURSE ---
vs not colledted, pt sleeping soundly, Nurse notified resp 16
[2025-04-27 06:00] VITALS: RESP 16
--- NOTE | 2025-04-27 06:31 | PC.NURSE ---
vs not colledted, pt sleeping soundly, Nurse notified resp 16
--- NOTE | 2025-04-27 06:33 | PC.NURSE ---
height and weight not done pt sleeping soundly, nurse notified
[2025-04-27] MEDS: multivitamin therapeutic Tablet 1 TAB PO (07:49)
--- NOTE | 2025-04-27 13:51 | P.NPUPN_ITS ---
Subjective NPU 2 Subjective: 29-year-old female admitted with homicid al ideation with a history of schizophrenia. The patient had remained hopeful about being able to go to the facility tomorrow. She reported no side effects from the medications. She had reported that her mood was feeling okay. She had reported no feelings of hopelessness or worthlessness. She remained isolative on the milieu. Mental Status Exam 2 MSE Comments: This is an obese versus morbidly obese weight female in hospital scrubs who appeared her stated age with fair grooming and eye contact. There was a mild extraocular tic noted. She was superficially and polite while somewhat cooperative with exam in minimal distress. Her speech was normal in regards to volume and rate and prosody. Her mood was described as good. Her affect remained slightly subdued. Her thought process was linear, logical, but superficial. Her thought content showed no evidence of suicidal or homicidal ideation currently. There was no evidence of delusions including Capgras Syndrome. There were no overt ideas of reference. She denied any auditory or visual hallucinations. She did not appear to be responding to internal stimuli. She remained somewhat guarded. She was alert and oriented to person, place, time, and situation. Her insight is limited. Her judgment is limited. Her impulse control appeared fair at this time. Vitals/I&O/Wt Last Vital Signs Temp 98.7 F 04/26/25 13:16 Pulse 118 H 04/26/25 13:16 Resp 16 04/27/25 06:00 BP 122/74 04/26/25 13:16 Pulse Ox 97 04/26/25 13:16 O2 Del Method Room Air 04/26/25 13:16 Data NPU 03/29/25 14:56 03/29/25 14:56 A&P Assessment and plan 1. Paranoid schizophrenia: 2. Homicidal ideations: 3. Acute psychosis: Plan: 29-year-old female who presents with significant delusions with history of multiple inpatient hospitalizations currently on an involuntary hold and refusing any medications at this time. #1.Engage patient in individual, milieu, and group therapy. #2 therapeutic observation 15-minute checks. #3 Will attempt to gather collateral information including previous hospitalizations. #4 patient may require forced medications on an extended hold as she is currently refusing medications and is on a 96-hour hold. 21 day hold filed. Hearing was 04/08/2025 at 1500. She was placed on a 21-day hold. #5 Mother seeking emergency guardianship of patient and will support it with level 2. Guardianship hearing took place 04/17/2025.Mother granted temporary guardianship. #6 started Abilify 10 mg p.o. every morning. Discontinue Abilify and start Invega 3 mg p.o. daily. Increased to 6 milligrams g p.o. daily of Invega. The Invega Sustenna loading dose 234 mg IM to deltoid since that is the loading dose was given 04/17/2025 with next loading dose 156 mg IM to the deltoid given 04/23/25. #7 Will continue to seek placement. Level 2 has been completed. Evaluation for Level 2 placement is scheduled. Continue B6 to 150mg bid. #8 Likely discharge to [facility] with guardian when bed becomes available on Monday04/28/25. PDMP PDMP Reviewed: Not Reviewed Involuntary Hold Information 2 Hold Status: Legal Status: Active Guardianship Date/Time Hold Expires: 06/30/2024 Attestations NPU 2 Medical Necessity Statement*: Inpatient hospitalization is medically necessary and the clinically appropriate intervention at this time. We will monitor/initiate medications and make changes as indicated. Patient's likely length of stay is 1-2 days. Coding Level of Care Code Acute Code for [facility] Diagnoses Paranoid schizophrenia F20.0 Homicidal ideations R45.850 Acute psychosis F23
[2025-04-27 14:00] VITALS: BP 123/75; PULSE 100; RESP 18; TEMP 37; O2SAT 96
[2025-04-27 21:46] VITALS: BP 136/87; PULSE 102; RESP 17; TEMP 36.7; O2SAT 97
[2025-04-28 06:00] VITALS: RESP 16
--- NOTE | 2025-04-28 06:34 | PC.NURSE ---
vs not completed pt sleeping soundly, resp 16 nurse notified
[2025-04-28] MEDS: multivitamin therapeutic Tablet 1 TAB PO (07:31)
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
[2025-04-28 10:21] VITALS: BP 136/87; PULSE 102; RESP 16; TEMP 36.7; O2SAT 97
== END 2025-04-28 10:45 | disposition home or self-care (01) | DRG 750 ==
LOC: ER 15:51 → NP 16:01
PROVIDERS: Admitting Provider Psychiatry & Neurology Psychiatry; Emergency Provider Physician Assistant; Visit Provider Psychiatry & Neurology Psychiatry
DX: F20.0 Paranoid schizophrenia (principal); R45.850 Homicidal ideations; E66.9 Obesity, unspecified; Z68.42 Body mass index [BMI] 45.0-49.9, adult
CPT/HCPCS: 36415; 80053; 80306; 80307; 81001; 84703; 85025; 96372; 97150; 97165; 99285; J9999